=== PATIENT | female | born 1940 | race Caucasian/White ===

== ENCOUNTER 2019-02-17 13:33 | Inpatient (IN) | payer MEDICARE, OTHER ==
[~2019-02-17] VITALS: Ht 165.1 cm; Wt 117.2 kg
[~2019-02-17 13:33] MED LIST: ACET500 PO; ACETAMINOPHEN500 MG PO; ALBU90OI INH; AMLO5 PO; ASPI325; ASPI325 PO; ASPI81CH PO; ATOR40TA PO; ATOR80 PO; AZIT500 PO; B Complex #11 EACH PO; BREO ELLIPTA 11 EACH INH; BREO ELLIPTA 21 EACH INH; CARV25 PO; CARV6.25 PO; CEFP200 PO; CENTRUM SILVER1 EAC2 PO; CHOL10002 PO; COQ1050 MG PO; CRESTOR 40MG; CRESTOR PO; CYCL10 PO; D3-20002000 UNIT PO; DILT120 PO; EZET10 PO; FLONASE ALLERG9.9 ML; FLUSAL2505 INH; FLUT.05NI; FLUT44OIA; FURO20 PO; GABA100 PO; GABA300 PO; GLUCHON; GUAIFENESIN AC473 ML PO; HYDACE5325; HYDCHL25 PO; IBUP400 PO; INS70/30I; INS70/30I SC; INS70/30PN SC; LAVAP17G PO; LISHYD2012 PO; LOSA50 PO; LOSARTAN/HCTZ 100/25; LOSHYD100 PO; METF500; METPRE4DP PO; MONT10T PO; MULVITMIND PO; MULVITMINF; Micro-K10 MEQ PO; Novolog100 UNIT/1 SQ; OXYC5 PO; PIOG45 PO; POTCHL10ER PO; PRED20; PROAIR RESPICL90 MCG INH; PYRI100; SACC250C PO; SITA100T2; SITA100T2 PO; SITA50T2; SODCHL.65S; VITAMIN B COMPLEX; Vitamin D2000 UNIT PO; Vitamin D400 UNI1 PO; [UNRECOGNIZED DRUG - OTHER]; [UNRECOGNIZED DRUG - OTHER] SC
[2019-02-17] MEDS ORDERED: HYDR1TAB94 PO (14:03)
[2019-02-17] MEDS ORDERED: LOVA40 PO (14:04)
[2019-02-17] MEDS ORDERED: LIVALO2 MG PO (16:23)
[2019-02-17] MEDS ORDERED: FURO20 PO (16:36)
[2019-02-18 01:51] LABS: BASOPHILS ABSOLUTE AUTO 0.07 K/mm3 (0.00-0.23); BASOPHILS PERCENT AUTO 1 % (0-2); EOSINOPHILS ABSOLUTE AUTO 0.21 K/mm3 (0.00-0.68); EOSINOPHILS PERCENT AUTO 1 % (0-6); Hematocrit 36.2 % (33.0-51.0); Hemoglobin 11.9 g/dL (11.5-16.0); IMMATURE GRAN ABSOLUTE AUTO 0.15 K/mm3 (0.00-0.10); IMMATURE GRAN PERCENT AUTO 1 % (0-1); LYMPHOCYTES ABSOLUTE AUTO 3.37 K/mm3 (0.84-5.20); LYMPHOCYTES PERCENT AUTO 22 % (21-46); MONOCYTES ABSOLUTE AUTO 1.31 K/mm3 (0.16-1.47); MONOCYTES PERCENT AUTO 9 % (4-13); Mean Corpuscular HGB 29.7 pg (26.0-34.0); Mean Corpuscular HGB Conc 32.9 g/dL (31.5-36.5); Mean Corpuscular Volume 90 fL (80-100); Mean Platelet Volume 11.8 fL (9.1-12.4); NEUTROPHILS ABSOLUTE AUTO 10.37 K/mm3 (1.96-9.15); NEUTROPHILS PERCENT AUTO 67 % (41-73); Platelet Count 257 K/mm3 (150-400); RDW Coefficient Variation 12.3 % (11.7-14.2); RDW Standard Deviation 40.7 fL (35.1-46.3); Red Blood Cell Count 4.01 M/mm3 (3.80-5.20); White Blood Cell Count 15.48 K/mm3 (4.00-11.30)
[2019-02-18 01:56] LABS: Albumin, Blood 2.7 g/dL (3.4-5.0); Albumin/Globulin Ratio 0.8 (0.8-1.8); Bilirubin, Total 0.6 mg/dL (0.1-1.0); Bun/Creatinine Ratio 18.5 (12.0-20.0); Calcium, Blood 8.6 mg/dL (8.5-10.1); Creatinine, Blood 0.97 mg/dL (0.40-1.00); Globulin, Blood 3.3 g/dL (2.2-4.0); Potassium, Blood 3.9 mmol/L (3.5-5.5)
--- NOTE | 2019-02-18 05:09 | NUR ---
SHIFT SUMMARY ADMITTED FOR CP. AOX4. LS CLEAR, DENIES SOB. NO C/O NAUSEA. PAIN RATED 5/10 FOR HEADACHE. TYLENOL GIVEN @ 2034, NO RELIEF. 2 NORCO GIVEN @ 2229, PT SLEEPING FOR REASSESSMENT. TELE READS SINUS LEONEL 51. PT HAS ADINA BUT DOESNT WEAR CPAP. REFUSED TEDS. INDEPENDENT. DM2, AC AND HS. SBP 214/80 IN ED. PRN HYDRALAZINE GIVEN IN ED. SBP TO STAY AROUND [address] MYERS, NO PRN HYDRALAZINE UNLESS ABOVE 180/190. SBP DID GET DOWN TO 150/95, CALLED DR MYERS AND SHE SAID THAT WAS OKAY. TROPS HAVE BEEN ELEVATED. CHRONIC ELEVATED TROPS OVER THE LAST FEW YEARS. POSSIBLE DC TODAY.
--- NOTE | 2019-02-18 10:32 | NUR ---
echocardiogram completed
[2019-02-18] MEDS ORDERED: LOSA50 PO (12:33)
[2019-02-18] MEDS ORDERED: LOVA40 PO (12:34)
--- NOTE | 2019-02-18 17:56 | NUR ---
shift summary independent in room. dozing on and off. anxious about her cats but were able to get ahold of a friend that was able to help her out. has denied any chest pain, pressure, or discomfort. possible discharge tomorrow.
[2019-02-19 05:28] LABS: BASOPHILS ABSOLUTE AUTO 0.05 K/mm3 (0.00-0.23); BASOPHILS PERCENT AUTO 0 % (0-2); EOSINOPHILS ABSOLUTE AUTO 0.31 K/mm3 (0.00-0.68); EOSINOPHILS PERCENT AUTO 2 % (0-6); Hemoglobin 11.7 g/dL (11.5-16.0); IMMATURE GRAN ABSOLUTE AUTO 0.07 K/mm3 (0.00-0.10); IMMATURE GRAN PERCENT AUTO 1 % (0-1); LYMPHOCYTES ABSOLUTE AUTO 3.95 K/mm3 (0.84-5.20); LYMPHOCYTES PERCENT AUTO 30 % (21-46); MONOCYTES ABSOLUTE AUTO 1.55 K/mm3 (0.16-1.47); MONOCYTES PERCENT AUTO 12 % (4-13); Mean Corpuscular HGB 28.8 pg (26.0-34.0); Mean Corpuscular HGB Conc 32.5 g/dL (31.5-36.5); Mean Corpuscular Volume 89 fL (80-100); Mean Platelet Volume 12.5 fL (9.1-12.4); NEUTROPHILS ABSOLUTE AUTO 7.13 K/mm3 (1.96-9.15); NEUTROPHILS PERCENT AUTO 55 % (41-73); Platelet Count 246 K/mm3 (150-400); RDW Coefficient Variation 12.5 % (11.7-14.2); RDW Standard Deviation 40.3 fL (35.1-46.3); Red Blood Cell Count 4.06 M/mm3 (3.80-5.20); White Blood Cell Count 13.06 K/mm3 (4.00-11.30)
--- NOTE | 2019-02-19 05:30 | NUR ---
SHIFT SUMMARY DRESSING CHANGED ON PTS IV INSERTION SITE, IV FLUSHES WELL. PT HAD GOOD ENERGY AND WAS STEADY ON FEET WHEN WALKING AROUND HER ROOM. PT ON TELE, RATE AN RHYTHM IS SINUS LEONEL AT 53. BED IS IN LOWEST POSITION WITH WHEELS LOCKED. CALL LIGHT WITHIN REACH. PT CALLS APPROPRIATELY. REPORT GIVEN TO ONCOMING RN.
[2019-02-19] MEDS ORDERED: AMLO10 PO (14:45)
[2019-02-19] MEDS ORDERED: CLOP75 PO (14:50)
[2019-02-19] MEDS ORDERED: SPIR25 PO (14:51)
[2019-02-19] MEDS ORDERED: HYDR10 PO (14:52)
--- NOTE | 2019-02-19 16:54 | NUR ---
SHIFT SUMMARY PT AWAKE DURING SHIFT REPORT. VERY PLEASANT AND TALKATIVE. ADMITTED FOR CP AND SOB. HX OF CHF, HTN, AND SEVERE AORTIC STENOSIS. DR LUGO IN TO SEE PT EARLY. NO C/O CP OR SOB. SR ON TELE, PER MX TECH. PT ABLE TO AMBULATE IN INDEPENDENTLY, USING FWW. D/C ORDERS PLACED. PT INFORMED. IV D/C'D WNL. TELE MX REMOVED AND RETURNED TO PCU. PT THEN BECAME ANXIOUS AT NOT HAVING A RIDE BACK TO [facility] WHERE SHE LEFT HER TRUCK. PT EVENTUALLY ABLE TO REACH HER FRIEND TO COME AND GET HER. PT VERY RELIEVED AND GRATEFUL FOR CARE. [facility] GUN STOCK MAKER IN TO SEE PT PRIOR TO D/C TO EXPLAIN PLAN OF CARE AND FOLLOW UP APPOINTMENTS. PT VERBALIZED UNDERSTANDING. ASSISTED PT OUT TO CAR WITH WAITING FRIEND.
--- NOTE | 2019-02-19 18:16 | NUR ---
CALLED PT AT HOME, AFTER D/C TO REVIEW MEDICATIONS AND INSULIN ONCE AGAIN TO MAKE SURE PT UNDERSTOOD. ENCOURAGED PT TO CK CBG'S PRIOR TO INSULIN ADMIN. PT VERBALIZED UNDERSTANDING. ALSO ENCOURAGED PT TO CHECK BP PRIOR TO TAKING BP MEDS, WELL TO REVIEW BP MEDS AGAIN WITH THE DIESEL INSPECTOR WHEN SHE GOES TO FOLLOW UP APPOINTMENT. PT REPORTED THAT SHE WOULD BE MORE CAREFUL NOW.
== END 2019-02-19 15:30 | disposition home or self-care (01) | DRG 304 ==
LOC: ER 13:33 → MEDS 17:29 → ERHOLD 17:29 → MEDS 18:47
PROVIDERS: ADMIT Student in an Organized Health Care Education/Training Program
DX: I16.9 Hypertensive crisis, unspecified (principal); I50.43 Acute on chronic combined systolic (congestive) and diastolic (congestive) heart failure; Z68.41 Body mass index [BMI] 40.0-44.9, adult; I13.0 Hypertensive heart and chronic kidney disease with heart failure and stage 1 through stage 4 chronic kidney disease, or unspecified chronic kidney disease; N18.3 Chronic kidney disease, stage 3 (moderate); E11.22 Type 2 diabetes mellitus with diabetic chronic kidney disease; E78.5 Hyperlipidemia, unspecified; E66.01 Morbid (severe) obesity due to excess calories; G47.33 Obstructive sleep apnea (adult) (pediatric); I35.0 Nonrheumatic aortic (valve) stenosis; R00.1 Bradycardia, unspecified; Z66 Do not resuscitate; Z91.14 Patient's other noncompliance with medication regimen; Z79.82 Long term (current) use of aspirin; Z79.4 Long term (current) use of insulin; Z79.899 Other long term (current) drug therapy
CPT/HCPCS: 36415; 71046; 80053; 82947; 83880; 84484; 85025; 85379; 93005; 93010; 93306; 94640; 94760; 96374; 98960; 99285-25; A9270; A9270-GY; J0360; J1650; J1815

== ENCOUNTER 2021-05-01 07:51 | Emergency (ER) | payer MEDICARE, OTHER ==
[~2021-05-01] VITALS: Ht 162.6 cm; Wt 108.9 kg
[~2021-05-01 07:51] MED LIST changes: +AMLO10 PO; +Aspir 8181 MG PO; +BREO ELLIPTA 21 EAC1; +CLOP75 PO; +CYAN500 PO; +ELIQUIS5 MG PO; +Flonase 0.05% N16 GM; +GLUCOSAMINE-CH1 EAC7 PO; +GLUCOSAMINE/CHONDR PO; +HYDR10 PO; +HYDR1TAB94 PO; +LIVALO2 MG PO; +LOVA40 PO; +MUCINEX DM PO; +NOVOLOG MI100 UNIT/2 SC; +PYRI100 PO; +Prednisone20 MG PO; +SPIR25 PO; +UBID10 PO; -[UNRECOGNIZED DRUG - OTHER] SC
[2021-05-01 08:36] LABS: BASOPHILS ABSOLUTE AUTO 0.08 K/mm3 (0.00-0.23); BASOPHILS PERCENT AUTO 1 % (0-2); EOSINOPHILS ABSOLUTE AUTO 0.26 K/mm3 (0.00-0.68); EOSINOPHILS PERCENT AUTO 3 % (0-6); Hematocrit 41.1 % (33.0-51.0); Hemoglobin 13.4 g/dL (11.5-16.0); IMMATURE GRAN ABSOLUTE AUTO 0.05 K/mm3 (0.00-0.10); IMMATURE GRAN PERCENT AUTO 1 % (0-1); LYMPHOCYTES ABSOLUTE AUTO 2.97 K/mm3 (0.84-5.20); LYMPHOCYTES PERCENT AUTO 29 % (21-46); MONOCYTES ABSOLUTE AUTO 0.96 K/mm3 (0.16-1.47); MONOCYTES PERCENT AUTO 10 % (4-13); Mean Corpuscular HGB 29.2 pg (26.0-34.0); Mean Corpuscular HGB Conc 32.6 g/dL (31.5-36.5); Mean Corpuscular Volume 90 fL (80-100); Mean Platelet Volume 10.3 fL (9.1-12.4); NEUTROPHILS ABSOLUTE AUTO 5.79 K/mm3 (1.96-9.15); NEUTROPHILS PERCENT AUTO 57 % (41-73); Platelet Count 318 K/mm3 (150-400); RDW Coefficient Variation 13.1 % (11.7-14.2); RDW Standard Deviation 42.3 fL (35.1-46.3); Red Blood Cell Count 4.59 M/mm3 (3.80-5.20); White Blood Cell Count 10.11 K/mm3 (4.00-11.30)
[2021-05-01 08:51] LABS: Calcium, Blood 8.8 mg/dL (8.5-10.1); Potassium, Blood 3.5 mmol/L (3.5-5.5)
== END 2021-05-01 10:53 | disposition home or self-care (01) ==
LOC: ER 07:51
PROVIDERS: Emergency Medicine
DX: M79.605 Pain in left leg (principal); M79.604 Pain in right leg; E11.9 Type 2 diabetes mellitus without complications; I10 Essential (primary) hypertension; E78.5 Hyperlipidemia, unspecified; J44.9 Chronic obstructive pulmonary disease, unspecified; Z79.899 Other long term (current) drug therapy; W01.0XXA Fall on same level from slipping, tripping and stumbling without subsequent striking against object, initial encounter
CPT/HCPCS: 36415; 80048; 85025; 99283

== ENCOUNTER 2021-11-19 17:28 | Inpatient (IN) | payer MEDICARE, OTHER | END 2021-12-28 15:10 | DRG 56 | LOC: ER 17:28 → SURS 17:29 → MEDS 11-21 20:10 | PROVIDERS: ADMIT Internal Medicine | PROC: 8E0ZXY6 Isolation (ICD-10-PCS; principal; 2021-11-30) | DX: G30.9 Alzheimer's disease, unspecified (principal); G92.8 Other toxic encephalopathy; U07.1 COVID-19; M62.82 Rhabdomyolysis; I50.32 Chronic diastolic (congestive) heart failure; I13.0 Hypertensive heart and chronic kidney disease with heart failure and stage 1 through stage 4 chronic kidney disease, or unspecified chronic kidney disease; R65.10 Systemic inflammatory response syndrome (SIRS) of non-infectious origin without acute organ dysfunction; F02.80 Dementia in other diseases classified elsewhere, unspecified severity, without behavioral disturbance, psychotic disturbance, mood disturbance, and anxiety; E86.0 Dehydration; E87.6 Hypokalemia; Z66 Do not resuscitate; Z51.5 Encounter for palliative care; E11.65 Type 2 diabetes mellitus with hyperglycemia; B37.2 Candidiasis of skin and nail; E66.9 Obesity, unspecified; G47.33 Obstructive sleep apnea (adult) (pediatric); I27.20 Pulmonary hypertension, unspecified; N18.30 Chronic kidney disease, stage 3 unspecified; J44.9 Chronic obstructive pulmonary disease, unspecified; W18.30XA Fall on same level, unspecified, initial encounter; E78.00 Pure hypercholesterolemia, unspecified; I25.10 Atherosclerotic heart disease of native coronary artery without angina pectoris; I35.0 Nonrheumatic aortic (valve) stenosis; Z96.653 Presence of artificial knee joint, bilateral; S40.012A Contusion of left shoulder, initial encounter; S40.022A Contusion of left upper arm, initial encounter; E11.22 Type 2 diabetes mellitus with diabetic chronic kidney disease; I48.0 Paroxysmal atrial fibrillation; F32.A Depression, unspecified; Z90.49 Acquired absence of other specified parts of digestive tract; Z90.710 Acquired absence of both cervix and uterus; Z91.19 Patient's noncompliance with other medical treatment and regimen; Z90.722 Acquired absence of ovaries, bilateral; Z98.890 Other specified postprocedural states; Z95.4 Presence of other heart-valve replacement; Z88.8 Allergy status to other drugs, medicaments and biological substances; Z91.041 Radiographic dye allergy status; Z85.42 Personal history of malignant neoplasm of other parts of uterus; Z88.5 Allergy status to narcotic agent; Z79.4 Long term (current) use of insulin; Z79.01 Long term (current) use of anticoagulants; Z79.52 Long term (current) use of systemic steroids; Z79.899 Other long term (current) drug therapy; Z79.51 Long term (current) use of inhaled steroids; Z79.02 Long term (current) use of antithrombotics/antiplatelets; Z68.36 Body mass index [BMI] 36.0-36.9, adult ==

== ENCOUNTER → 2022-03-06 | Outpatient (CLI) | payer MEDICARE, OTHER ==
[~2022-03-06] MED LIST changes: +AMIODARONE HCL100 M3 PO; -BREO ELLIPTA 21 EAC1; +BREO ELLIPTA 21 EAC1 INH; +CARVEDILOL3.125 MG PO; +FURO40 PO; +Hair, Skin & N1 EACH PO; +LOVASTATIN40 MG PO; -MULVITMIND PO
[2022-03-07 15:17] LABS: Appearance, Urine Clear (Clear); Bilirubin, Urine Neg (Neg); Blood, Urine Neg (Neg); Color, Urine Yellow (P-Yellow); Glucose Qualitative, Urine Neg (Neg); Ketones, Urine Neg (Neg); Leukocyte Esterase, Urine 2+ (Neg); Nitrite, Urine Neg (Neg); Protein, Urine Neg (Neg); Urobilinogen, Urine NORM (Normal); pH, Urine 6.5 (5.0-8.0)
[2022-03-07 16:44] LABS: Bacteria Few /hpf; Red Blood Cells, Urine 0-2 /hpf (0-2); Squamous Epithelial Cells Few /hpf (Few); White Blood Cells, Urine 0-2 /hpf (0-5)
== END ==
LOC: LAB SHORT 16:00 → LAB 16:00 → LAB SHORT 03-07 14:01
PROVIDERS: Family Medicine
DX: N39.0 Urinary tract infection, site not specified (principal)
CPT/HCPCS: 81001; 87086

== ENCOUNTER → 2022-04-07 | Outpatient (CLI) | payer MEDICARE, OTHER | END | disposition home or self-care (01) | DX: N39.0 Urinary tract infection, site not specified (principal) ==

== ENCOUNTER 2022-04-12 12:01 | Emergency (ER) | payer OTHER, MEDICARE ==
[~2022-04-12] VITALS: Ht 160 cm; Wt 93.9 kg
[2022-04-12] MEDS ORDERED: CYCL10 (15:26)
[2022-04-12] MEDS ORDERED: PANTOPRAZOLE SO40 M2 PO (15:27)
[2022-04-12] MEDS ORDERED: LOSA25 PO (15:27)
[2022-04-12] MEDS ORDERED: BRIMONIDINE TART5 M2 OP (15:27)
[2022-04-12] MEDS ORDERED: METFORMIN HCL500 M2 PO (15:28)
[2022-04-12] MEDS ORDERED: Melatonin5 M1 PO (15:28)
[2022-04-12] MEDS ORDERED: MIRTAZAPINE30 MG PO (15:28)
[2022-04-12] MEDS ORDERED: QUETIAPINE FUMA25 MG PO (15:29)
== END 2022-04-12 18:03 | disposition home or self-care (01) ==
LOC: ER 12:01
DX: Z04.3 Encounter for examination and observation following other accident (principal); E11.9 Type 2 diabetes mellitus without complications; I10 Essential (primary) hypertension; E78.5 Hyperlipidemia, unspecified; J44.9 Chronic obstructive pulmonary disease, unspecified; I48.91 Unspecified atrial fibrillation; I25.10 Atherosclerotic heart disease of native coronary artery without angina pectoris; Z88.8 Allergy status to other drugs, medicaments and biological substances; Z91.041 Radiographic dye allergy status; Z79.899 Other long term (current) drug therapy; Z79.4 Long term (current) use of insulin; W18.30XA Fall on same level, unspecified, initial encounter
CPT/HCPCS: 70450

== ENCOUNTER 2022-05-06 14:45 | Emergency (ER) | payer MEDICARE, OTHER ==
[~2022-05-06] VITALS: Ht 165.1 cm; Wt 108.9 kg
[~2022-05-06 14:45] MED LIST changes: +ALBU2.5V5; +BISA10S PR; +BRIMONIDINE TART5 M2 OP; +CELE200 PO; +COENZYME Q-1030 MG PO; +CYCL10; +DULCOLAX400 MG/5 M PO; +GLIP5; +LOPE2C PO; +LOSA25 PO; +METFORMIN HCL500 M2 PO; +METO25ER PO; +MIRTAZAPINE30 MG PO; +MYLANTA GAS MIN42 MG PO; +Melatonin5 M1 PO; +PANTOPRAZOLE SO40 M2 PO; +QUETIAPINE FUMA25 MG PO; +SERT50 PO; +[UNRECOGNIZED DRUG - CODE] PO
[2022-05-06 15:29] LABS: BASOPHILS ABSOLUTE AUTO 0.04 K/mm3 (0.00-0.23); BASOPHILS PERCENT AUTO 1 % (0-2); EOSINOPHILS ABSOLUTE AUTO 0.08 K/mm3 (0.00-0.68); EOSINOPHILS PERCENT AUTO 1 % (0-6); Hematocrit 36.8 % (33.0-51.0); Hemoglobin 12.1 g/dL (11.5-16.0); IMMATURE GRAN ABSOLUTE AUTO 0.05 K/mm3 (0.00-0.10); IMMATURE GRAN PERCENT AUTO 1 % (0-1); LYMPHOCYTES ABSOLUTE AUTO 1.64 K/mm3 (0.84-5.20); LYMPHOCYTES PERCENT AUTO 26 % (21-46); MONOCYTES ABSOLUTE AUTO 0.86 K/mm3 (0.16-1.47); MONOCYTES PERCENT AUTO 14 % (4-13); Mean Corpuscular HGB 28.7 pg (26.0-34.0); Mean Corpuscular HGB Conc 32.9 g/dL (31.5-36.5); Mean Corpuscular Volume 87 fL (80-100); Mean Platelet Volume 10.8 fL (9.1-12.4); NEUTROPHILS ABSOLUTE AUTO 3.68 K/mm3 (1.96-9.15); NEUTROPHILS PERCENT AUTO 58 % (41-73); Platelet Count 271 K/mm3 (150-400); RDW Coefficient Variation 13.6 % (11.7-14.2); RDW Standard Deviation 43.6 fL (35.1-46.3); Red Blood Cell Count 4.22 M/mm3 (3.80-5.20); White Blood Cell Count 6.35 K/mm3 (4.00-11.30)
[2022-05-06 15:42] LABS: Ethanol (Alcohol), Blood, Med <3 mg/dL; Magnesium, Blood 1.6 mg/dL (1.6-2.4)
[2022-05-06 15:46] LABS: Alanine Aminotransfer (ALT/SGP 28 U/L (12-78); Albumin, Blood 3.1 g/dL (3.4-5.0); Albumin/Globulin Ratio 0.8 (0.8-1.8); Alk Phos 104 U/L (50-136); Anion Gap 10 mmol/L (6-16); Aspartate Aminotrans (AST/SGOT 33 U/L (12-37); Bilirubin, Total 0.3 mg/dL (0.1-1.0); Blood Urea Nitrogen 21 mg/dL (8-24); Bun/Creatinine Ratio 14.8 (12.0-20.0); CO2, Blood 25 mmol/L (21-32); Calcium, Blood 8.6 mg/dL (8.5-10.1); Chloride, Blood 106 mmol/L (98-108); Creatinine, Blood 1.42 mg/dL (0.40-1.00); Globulin, Blood 3.9 g/dL (2.2-4.0); Glomerular Filtration Rate 37 (60-); Glucose, Blood 122 mg/dL (70-99); Potassium, Blood 3.3 mmol/L (3.5-5.5); Sodium, Blood 141 mmol/L (136-145)
[2022-05-06 16:28] LABS: Influenza B, PCR NEGATIVE (NEGATIVE); Resp Syncytial Virus, PCR NEGATIVE (NEGATIVE); SARS-Cov-2 (COVID-19) PCR, MMC NEGATIVE (NEGATIVE)
[2022-05-06 16:30] LABS: Influenza A, PCR POSITIVE (NEGATIVE)
[2022-05-06] MEDS ORDERED: IMODIUM A-D2 M1 PO (17:39)
[2022-05-06] MEDS ORDERED: Tamiflu75 MG PO (17:39)
== END 2022-05-06 18:20 | disposition home or self-care (01) ==
LOC: ER 14:45
PROVIDERS: Emergency Medicine
DX: J10.1 Influenza due to other identified influenza virus with other respiratory manifestations (principal); R53.1 Weakness; E11.9 Type 2 diabetes mellitus without complications; I10 Essential (primary) hypertension; I25.10 Atherosclerotic heart disease of native coronary artery without angina pectoris; Z20.822 Contact with and (suspected) exposure to COVID-19
CPT/HCPCS: 0241U; 36415; 71045; 80053; 83735; 83880; 84443; 84484; 85025; 93005; 93010; A9270; G0480; J7030

== ENCOUNTER → 2022-06-27 | Outpatient (CLI) | payer MEDICARE, OTHER ==
[~2022-06-27] MED LIST changes: +IMODIUM A-D2 M1 PO; +Tamiflu75 MG PO
[2022-06-27 19:24] LABS: Appearance, Urine Clear (Clear); Bilirubin, Urine Neg (Neg); Blood, Urine Neg (Neg); Color, Urine Yellow (P-Yellow); Glucose Qualitative, Urine Neg (Neg); Ketones, Urine Neg (Neg); Leukocyte Esterase, Urine Neg (Neg); Nitrite, Urine Neg (Neg); Protein, Urine Neg (Neg); Urobilinogen, Urine NORM (Normal)
== END | disposition home or self-care (01) ==
LOC: LAB 11:00 → LAB SHORT 11:00
PROVIDERS: Physician Assistant
DX: N39.0 Urinary tract infection, site not specified (principal)
CPT/HCPCS: 81003; 87086

== ENCOUNTER → 2022-10-22 | Outpatient (CLI) | payer MEDICARE, OTHER ==
[2022-10-23 09:37] LABS: C DIFFICILE DNA Formed (Negative)
== END | disposition home or self-care (01) ==
LOC: LAB 12:00 → LAB SHORT 12:00
PROVIDERS: Physician Assistant
DX: R19.7 Diarrhea, unspecified (principal)
CPT/HCPCS: 87015; 87045; 87046; 87205; 87899

== ENCOUNTER → 2022-10-23 | Outpatient (CLI) | payer MEDICARE, OTHER ==
[2022-10-23 13:36] LABS: Creatinine, Urine Random 27.3 mg/dL (27.00-270.00); Microalb/Creat Ratio UR, Rand 19.634 mg/g (0.000-30.000); Microalbumin, Random Urine 5.36 mg/L (0.000-20.000)
== END | disposition home or self-care (01) ==
LOC: LAB 10:20 → LAB SHORT 10:20
PROVIDERS: Physician Assistant
DX: E11.9 Type 2 diabetes mellitus without complications (principal)
CPT/HCPCS: 82043; 82570

== ENCOUNTER → 2022-11-22 | Outpatient (CLI) | payer MEDICARE, OTHER ==
[2022-11-22 15:32] LABS: Appearance, Urine Clear (Clear); Bilirubin, Urine Neg (Neg); Blood, Urine Neg (Neg); Color, Urine Yellow (P-Yellow); Glucose Qualitative, Urine Neg (Neg); Ketones, Urine Neg (Neg); Leukocyte Esterase, Urine Neg (Neg); Nitrite, Urine Neg (Neg); Protein, Urine Neg (Neg); Specific Gravity, Urine 1.015 (1.003-1.022); Urobilinogen, Urine NORM (Normal)
== END | disposition home or self-care (01) ==
LOC: LAB 14:11 → LAB SHORT 14:11
PROVIDERS: Physician Assistant
DX: N39.0 Urinary tract infection, site not specified (principal)
CPT/HCPCS: 81003; 87086

== ENCOUNTER 2023-01-05 10:01 | Emergency (ER) | payer MEDICARE, OTHER ==
[~2023-01-05] VITALS: Ht 165.1 cm; Wt 86.2 kg
[2023-01-05] MEDS ORDERED: AMIODARONE HCL100 M3 PO (10:18)
[2023-01-05] MEDS ORDERED: FURO40 PO (10:19)
[2023-01-05] MEDS ORDERED: Alphagan P5 ML BOTHEYES (10:19)
[2023-01-05] MEDS ORDERED: CELE200 PO (10:19)
[2023-01-05] MEDS ORDERED: AMLO10 PO (10:19)
[2023-01-05] MEDS ORDERED: GABA300 PO (10:20)
[2023-01-05] MEDS ORDERED: GLIP5 PO (10:20)
[2023-01-05] MEDS ORDERED: Norco 5-325 Ta1 EACH PO (10:20)
[2023-01-05] MEDS ORDERED: HYDRA25 PO (10:20)
[2023-01-05] MEDS ORDERED: LOSA50 PO (10:21)
[2023-01-05] MEDS ORDERED: METO25ER PO (10:21)
[2023-01-05] MEDS ORDERED: LOVA40 PO (10:21)
[2023-01-05] MEDS ORDERED: MIRT15 PO (10:21)
[2023-01-05] MEDS ORDERED: MONT10T PO (10:21)
[2023-01-05] MEDS ORDERED: SERT50 PO (10:22)
[2023-01-05] MEDS ORDERED: ALBU90OI INH ×2 (10:22→12:12)
[2023-01-05] MEDS ORDERED: ACET325 PO (10:22)
[2023-01-05] MEDS ORDERED: PANT40 PO (10:22)
[2023-01-05 10:26] LABS: BASOPHILS ABSOLUTE AUTO 0.11 K/mm3 (0.00-0.23); BASOPHILS PERCENT AUTO 1 % (0-2); EOSINOPHILS ABSOLUTE AUTO 0.48 K/mm3 (0.00-0.68); EOSINOPHILS PERCENT AUTO 4 % (0-6); Hematocrit 39.7 % (33.0-51.0); Hemoglobin 12.8 g/dL (11.5-16.0); IMMATURE GRAN ABSOLUTE AUTO 0.06 K/mm3 (0.00-0.10); IMMATURE GRAN PERCENT AUTO 1 % (0-1); LYMPHOCYTES ABSOLUTE AUTO 3.68 K/mm3 (0.84-5.20); LYMPHOCYTES PERCENT AUTO 30 % (21-46); MONOCYTES ABSOLUTE AUTO 1.02 K/mm3 (0.16-1.47); MONOCYTES PERCENT AUTO 8 % (4-13); Mean Corpuscular HGB 28.6 pg (26.0-34.0); Mean Corpuscular HGB Conc 32.2 g/dL (31.5-36.5); Mean Corpuscular Volume 89 fL (80-100); Mean Platelet Volume 10.6 fL (9.1-12.4); NEUTROPHILS ABSOLUTE AUTO 6.76 K/mm3 (1.96-9.15); NEUTROPHILS PERCENT AUTO 56 % (41-73); Platelet Count 295 K/mm3 (150-400); RDW Coefficient Variation 12.7 % (11.7-14.2); RDW Standard Deviation 41.2 fL (35.1-46.3); Red Blood Cell Count 4.48 M/mm3 (3.80-5.20); White Blood Cell Count 12.11 K/mm3 (4.00-11.30)
[2023-01-05 10:42] LABS: Albumin, Blood 3.7 g/dL (3.4-5.0); Bilirubin, Total 0.4 mg/dL (0.1-1.0); Bun/Creatinine Ratio 15.4 (12.0-20.0); Calcium, Blood 8.9 mg/dL (8.5-10.1); Creatinine, Blood 0.91 mg/dL (0.40-1.00); Globulin, Blood 3.8 g/dL (2.2-4.0); Potassium, Blood 3.7 mmol/L (3.5-5.5); Total Protein, Blood 7.5 g/dL (6.4-8.2)
[2023-01-05] MEDS ORDERED: Prednisone20 MG PO (12:12)
[2023-01-05 14:22] VITALS: BP 170/76
== END 2023-01-05 14:25 | disposition home or self-care (01) ==
LOC: ER 10:01
PROVIDERS: Emergency Medicine
DX: J45.909 Unspecified asthma, uncomplicated (principal); E11.9 Type 2 diabetes mellitus without complications; I10 Essential (primary) hypertension; E78.5 Hyperlipidemia, unspecified; I48.91 Unspecified atrial fibrillation; Z79.01 Long term (current) use of anticoagulants; Z79.899 Other long term (current) drug therapy; Z88.8 Allergy status to other drugs, medicaments and biological substances
CPT/HCPCS: 71046; 80053; 83880; 84484; 85025; 93005; 93010; 94640; 94664; 99285-25; J7512

== ENCOUNTER 2023-01-20 08:30 | Inpatient (IN) | payer MEDICARE, OTHER ==
[~2023-01-20] VITALS: Ht 165.1 cm; Wt 115.4 kg
[~2023-01-20 08:30] MED LIST changes: +ACET325 PO; +Alphagan P5 ML BOTHEYES; +GLIP5 PO; +HYDRA25 PO; +MIRT15 PO; +Norco 5-325 Ta1 EACH PO; +PANT40 PO
[2023-01-20 09:04] LABS: BASOPHILS ABSOLUTE AUTO 0.08 K/mm3 (0.00-0.23); BASOPHILS PERCENT AUTO 0 % (0-2); EOSINOPHILS PERCENT AUTO 1 % (0-6); Hematocrit 37.8 % (33.0-51.0); IMMATURE GRAN ABSOLUTE AUTO 0.16 K/mm3 (0.00-0.10); IMMATURE GRAN PERCENT AUTO 1 % (0-1); LYMPHOCYTES ABSOLUTE AUTO 1.99 K/mm3 (0.84-5.20); LYMPHOCYTES PERCENT AUTO 10 % (21-46); MONOCYTES ABSOLUTE AUTO 1.56 K/mm3 (0.16-1.47); MONOCYTES PERCENT AUTO 8 % (4-13); Mean Corpuscular HGB 28.8 pg (26.0-34.0); Mean Corpuscular HGB Conc 31.7 g/dL (31.5-36.5); Mean Corpuscular Volume 91 fL (80-100); Mean Platelet Volume 10.4 fL (9.1-12.4); NEUTROPHILS ABSOLUTE AUTO 15.79 K/mm3 (1.96-9.15); NEUTROPHILS PERCENT AUTO 80 % (41-73); Platelet Count 281 K/mm3 (150-400); RDW Coefficient Variation 12.8 % (11.7-14.2); RDW Standard Deviation 42.4 fL (35.1-46.3); Red Blood Cell Count 4.16 M/mm3 (3.80-5.20); White Blood Cell Count 19.68 K/mm3 (4.00-11.30)
[2023-01-20 09:30] LABS: Albumin, Blood 3.4 g/dL (3.4-5.0); Albumin/Globulin Ratio 0.8 (0.8-1.8); Bilirubin, Total 0.6 mg/dL (0.1-1.0); Bun/Creatinine Ratio 13.4 (12.0-20.0); Calcium, Blood 9.2 mg/dL (8.5-10.1); Creatinine, Blood 0.9 mg/dL (0.40-1.00); Globulin, Blood 4.2 g/dL (2.2-4.0); Potassium, Blood 4.1 mmol/L (3.5-5.5); Total Protein, Blood 7.6 g/dL (6.4-8.2)
[2023-01-20 11:26] LABS: Base Excess Venous 2.8 mmol/L; Bicarbonate Venous 26.1 mmol/L (24.0-30.0); PCO2 Venous 54.3 mmHg (38-42); pH Blood Venous 7.33 (7.34-7.37)
--- NOTE | 2023-01-20 12:10 | NUR ---
ASSUMPTION OF CARE PT ARRIVED TO UNIT VIA ED ANJANA. TRANSFERRED TO BED W/ SLIDER SHEET. PT IS AOX4, DROWSY, EASILY AROUSABLE TO VERBAL STIMULI. PT REPORTS OFTEN FORGETTING THINGS AT HOME, UNABLE TO PROVIDE MEDICATION HISTORY. LIVES AT [place], WILL CONTACT REGARDING MEDICATION HISTORY. VSS. TELEMETRY SHOWING SINUS LEONEL 50'S-60'S. CURRENTLY ON 3L VIA NC, SATS >95%. BIPAP TRANSFERRED W/ PT. IS AMBULATORY AT BASELINE, USES FWW. BEDBATH PERFORMED. PT ORIENTED TO UNIT, PROVIDED EDUCATION REGARDING FALL PREVENTION. BED ALARM IN PLACE. CALL LIGHT IN REACH.
[2023-01-20 12:54] VITALS: BP 156/80
[2023-01-20] MEDS ORDERED: CELE200 PO (15:59)
[2023-01-20] MEDS ORDERED: GABA300 PO ×2 (16:08→16:09)
[2023-01-20] MEDS ORDERED: HYDRA25 PO (16:11)
[2023-01-20] MEDS ORDERED: COENZYME Q-1030 MG PO (16:15)
[2023-01-20] MEDS ORDERED: FLUT.05NI (16:16)
[2023-01-20] MEDS ORDERED: MULVITA PO (16:17)
[2023-01-20] MEDS ORDERED: B-12500 MC2 PO (16:17)
[2023-01-20] MEDS ORDERED: Vitamin D1000 UNI1 PO (16:18)
[2023-01-20] MEDS ORDERED: PYRI100 PO (16:18)
[2023-01-20] MEDS ORDERED: ALUM-MAG HYDRO360 M1 PO (16:20)
[2023-01-20] MEDS ORDERED: BISA10S PR (16:21)
[2023-01-20] MEDS ORDERED: DIPATR PO (16:21)
[2023-01-20] MEDS ORDERED: LOPE2C PO (16:22)
[2023-01-20] MEDS ORDERED: DULCOLAX400 MG/5 M PO (16:23)
[2023-01-20] MEDS ORDERED: NYSTOP15 GM TOP (16:25)
[2023-01-20] MEDS ORDERED: BREO ELLIPTA 21 EAC1 INH (16:40)
[2023-01-20 16:48] VITALS: BP 158/65
--- NOTE | 2023-01-20 18:12 | NUR ---
SHIFT SUMMARY PT MORE LETHARGIC THIS AFTERNOON, BIPAP IN PLACE, EASILY AROUSABLE TO VERBAL STIMULI. FORGETFUL AT TIMES, BED ALARM ON. TELEMETRY SHOWING SINUS LEONEL, 40'S-50'S. VSS. SATS >95% ON BIPAP. ON 3L VIA NC OFF OF BIPAP. 1P ASSIST OOB W/ FWW. PUREWICK IN PLACE PT IS MORE LETHARGIC THIS EVENING. VOIDING SCANT AMOUNT. BLADDER SCAN IN PROGRESS PRIOR TO ADMINISTERING EVENING DOSE OF LASIX PER EMAR. SHOWING 672ML. NOTIFIED, RCVD ORDER TO STRAIGHT CATH. NO BM THIS SHIFT. REPOSITION FREQUENTLY TOLERATED. SITTING HOB GREATER THAN 30 DEGREES. CALL LIGHT IN REACH. WILL REPORT TO ONCOMING RN.
[2023-01-20 18:52] VITALS: BP 141/65
[2023-01-20 19:37] LABS: Base Excess Venous 4.5 mmol/L; Bicarbonate Venous 27.9 mmol/L (24.0-30.0); PCO2 Venous 42.8 mmHg (38-42); pH Blood Venous 7.44 (7.34-7.37)
[2023-01-20 20:00] VITALS: BP 161/71
[2023-01-21] VITALS (7 sets, daily range): BP systolic 117–172; BP diastolic 61–92
[2023-01-21 05:21] LABS: BASOPHILS ABSOLUTE AUTO 0.07 K/mm3 (0.00-0.23); BASOPHILS PERCENT AUTO 1 % (0-2); EOSINOPHILS ABSOLUTE AUTO 0.33 K/mm3 (0.00-0.68); EOSINOPHILS PERCENT AUTO 2 % (0-6); Hematocrit 33.5 % (33.0-51.0); Hemoglobin 11.6 g/dL (11.5-16.0); IMMATURE GRAN ABSOLUTE AUTO 0.09 K/mm3 (0.00-0.10); IMMATURE GRAN PERCENT AUTO 1 % (0-1); LYMPHOCYTES ABSOLUTE AUTO 2.77 K/mm3 (0.84-5.20); LYMPHOCYTES PERCENT AUTO 20 % (21-46); MONOCYTES ABSOLUTE AUTO 1.24 K/mm3 (0.16-1.47); MONOCYTES PERCENT AUTO 9 % (4-13); Mean Corpuscular HGB 28.9 pg (26.0-34.0); Mean Corpuscular HGB Conc 34.6 g/dL (31.5-36.5); NEUTROPHILS ABSOLUTE AUTO 9.65 K/mm3 (1.96-9.15); NEUTROPHILS PERCENT AUTO 68 % (41-73); RDW Coefficient Variation 12.7 % (11.7-14.2); RDW Standard Deviation 38.5 fL (35.1-46.3); Red Blood Cell Count 4.02 M/mm3 (3.80-5.20); White Blood Cell Count 14.15 K/mm3 (4.00-11.30)
[2023-01-21 05:33] LABS: Albumin, Blood 2.9 g/dL (3.4-5.0); Albumin/Globulin Ratio 0.8 (0.8-1.8); Bilirubin, Total 0.5 mg/dL (0.1-1.0); Bun/Creatinine Ratio 11.7 (12.0-20.0); Calcium, Blood 8.6 mg/dL (8.5-10.1); Creatinine, Blood 1.03 mg/dL (0.40-1.00); Globulin, Blood 3.8 g/dL (2.2-4.0); Potassium, Blood 3.5 mmol/L (3.5-5.5); Total Protein, Blood 6.7 g/dL (6.4-8.2)
[2023-01-21 05:39] LABS: Mean Corpuscular Volume 83 fL (80-100); Mean Platelet Volume 10.9 fL (9.1-12.4)
--- NOTE | 2023-01-21 06:10 | NUR ---
SHIFT SUMMARY PT MUCH MORE ALERT, INTERACTING AND RESPONDING TO QUESTIONS APPROPRIATELY. PT ORIENTED X4. MILD FORGETFULNESS NOTED BUT PT IS NOT CONFUSED. VSS; HR REMAINS SR/SB 50 - 60'S; OCCASSIONALLY TOUCHING DOWN TO 45-48. PT ON BIPAP; 10/5 W/35% FIO2 AT BEGINNING OF SHIFT, THEN SWITCHED TO 3 L NC FOR A BREAK. PT SPO2 MAINTAINED >94% AND PT WOB WNL. PT TOLERATING BEING ON NC WELL. PT RECENTLY UP TO BSC, WOB INCREASED SOME AND SPO2 84 - 87; PT PLACED BACK ON BIPAP TO HELP WITH RECOVERY. PT VOIDING WELL TO BSC W/SBA, NURSE ASSIST. CALL LIGHT IN REACH. WILL UPDATE ONCOMING RN
[2023-01-21 06:39] LABS: Platelet Count 222 K/mm3 (150-400)
--- NOTE | 2023-01-21 13:23 | NUR ---
ASSUMPTION OF CARE ASSUMED CARE AT APPROX 0700. PT AOX2, ALERTNESS WAXES AND WANES. INCREASED CONFUSION AND ANXIETY ASSESSED THIS MORNING, PT REORIENTED TO THE UNIT AND SITUATION. ABLE TO COMMUNICATE NEEDS PRN. VSS. REQUIRES BIPAP WHILE SLEEPING OR LETHARGIC D/T INCREASED WORK OF BREATHING, SATS >95%. BIPAP CAN CAUSE INCREASED ANXIETY UPON WAKING. 2L VIA NC WHILE AWAKE AND ALERT. TELEMETRY SHOWING SR 80'S INITIALLY. AROUND 0800, PT CONVERTED TO AFIB 90'S, ASYMPTOMATIC. MD NOTIFIED. SUSTAINING AT THIS TIME. VOIDING, UP TO THE BSC W/ 1P ASSIST FWW. SLEEPING T/O THE MORNING AND EARLY AFTERNOON, BED ALARM ON. CALL LIGHT IN REACH.
--- NOTE | 2023-01-21 17:03 | NUR ---
SHIFT SUMMARY NO ACUTE CHANGES THIS SHIFT. PT BECAME MUCH MORE ALERT T/O THE SHIFT. PRIOR DIAGNOSIS OF DEMENTIA, REQUIRES FREQUENT REORIENTATION REGARDING USE OF CALL LIGHT AND FALL PREVENTION, BED ALARM AND CHAIR ALARM IN PLACE. PLEASANT, COOPERATIVE W/ CARE. VSS. CURRENTLY ON 2L VIA NC, SATS >95%. USES BIPAP WHILE SLEEPING. DECREASED WORK OF BREATHING AT REST ASSESSED. MODERATE INCREASE W/ ACTIVITY. TELEMETRY SHOWING AFIB 80'S-90'S. BP STABLE. PT UP W/ SBA FWW TO BSC AND CHAIR. VOIDING. NO BM THIS SHIFT. CALL LIGHT IN REACH. WILL REPORT TO ONCOMING RN.
[2023-01-22] VITALS (7 sets, daily range): BP systolic 119–155; BP diastolic 78–111
[2023-01-22 04:28] LABS: BASOPHILS ABSOLUTE AUTO 0.07 K/mm3 (0.00-0.23); BASOPHILS PERCENT AUTO 1 % (0-2); EOSINOPHILS ABSOLUTE AUTO 0.32 K/mm3 (0.00-0.68); EOSINOPHILS PERCENT AUTO 3 % (0-6); Hematocrit 37.8 % (33.0-51.0); Hemoglobin 12.2 g/dL (11.5-16.0); IMMATURE GRAN ABSOLUTE AUTO 0.08 K/mm3 (0.00-0.10); IMMATURE GRAN PERCENT AUTO 1 % (0-1); LYMPHOCYTES ABSOLUTE AUTO 3.53 K/mm3 (0.84-5.20); LYMPHOCYTES PERCENT AUTO 27 % (21-46); MONOCYTES ABSOLUTE AUTO 1.23 K/mm3 (0.16-1.47); MONOCYTES PERCENT AUTO 9 % (4-13); Mean Corpuscular HGB 28.7 pg (26.0-34.0); Mean Corpuscular HGB Conc 32.3 g/dL (31.5-36.5); Mean Platelet Volume 10.6 fL (9.1-12.4); NEUTROPHILS ABSOLUTE AUTO 7.79 K/mm3 (1.96-9.15); NEUTROPHILS PERCENT AUTO 60 % (41-73); Platelet Count 315 K/mm3 (150-400); RDW Coefficient Variation 12.5 % (11.7-14.2); RDW Standard Deviation 40.6 fL (35.1-46.3); Red Blood Cell Count 4.25 M/mm3 (3.80-5.20); White Blood Cell Count 13.02 K/mm3 (4.00-11.30)
[2023-01-22 04:30] LABS: Mean Corpuscular Volume 89 fL (80-100)
[2023-01-22 04:43] LABS: Bun/Creatinine Ratio 16.4 (12.0-20.0); Creatinine, Blood 1.16 mg/dL (0.40-1.00); Magnesium, Blood 2.1 mg/dL (1.6-2.4); Potassium, Blood 3.1 mmol/L (3.5-5.5)
--- NOTE | 2023-01-22 06:24 | NUR ---
SHIFT SUMMARY PT IS A&O3-4, SHE CAN BE FORGETFUL BUT HAS BEEN USING HER CALL LIGHT FOR NEEDS MOST OF THE NIGHT. SHE IS A 1P SBA FOR [place], AND HAS BEEN UP IN THE CHAIR WATCHING TV MOST OF THE NIGHT. SHE HAS TAKEN A FEW NAPS BUT REFUSED ANY SLEEP AIDS. WHILE SHE HAS BEEN UP SHE HAS BEEN ON RA WITH SP02 >90%. WHEN SHE WAS TAKING A NAP SHE BEGAN TO DESATURATE TO THE UPPER 80'S SP02 AND HAD TO BE PLACED ON 2L NC TO MAINTAIN SP02 >90%. ON TELE THE PT HAS BEEN AFIB 90'S-100'S AND SHE HAS DENIES ANY ANGINA OR CHEST PRESSURE. PT HAS NOT HAS ANY COMPLAINTS AND HAS BEEN COOPERATIVE WITH CARE. FIRE IGNITION RISK HAS BEEN ASSESSED AND EDUCATION WAS PROVIDED. SEE NOTES FOR ANY UDATES.
--- NOTE | 2023-01-22 16:06 | NUR ---
CARE ASSUMPTION THIS RN ASSUMED CARE FROM JUNAID Unger RN AT 1530. PATIENT IS ALERT AND ORIENTED3-4. FORGETFUL AT TIMES. PATIENT IS ABLE TO MAKE NEEDS KNOWN AND USES CALL LIGHT APPROPRIATELY. PATIENT SITTING IN CHAIR WITH CALL LIGHT WITHIN REACH. PATIENT REPORTS NO PAIN, CHEST PAIN, OR SHORTNESS OF BREATH. PLAN OF CARE IS UP TO DATE. MEDICAL STATUS WITH TELE.
--- NOTE | 2023-01-22 18:23 | NUR ---
SHIFT SUMMARY PATIENT NERUO REMAINS UNCHAGED. NO ACUTE CHANGES. CALL LIGHT WITHIN REACH,
[2023-01-23 03:45] VITALS: BP 179/81
--- NOTE | 2023-01-23 03:51 | NUR ---
I CALLED DR. GARCIA ABOUT SBP >170. DR. GARCIA ORDERED HYDRALIZINE 10MG Q4 FOR SBP >160. ALSO, AND ORDER OF TYLENOL WAS OBTAINED DUE TO THE PT C/O RIGHT ARM PAIN. PAIN IS CONSTANT AND A THROB. PT HAS BEEN LAYING ON THAT ARM WHEN SLEEPING.
[2023-01-23 04:16] VITALS: BP 152/94
--- NOTE | 2023-01-23 06:07 | NUR ---
SHIFT SUMMARY PT IS A&OX4 AND HAS NOT BEEN FORGETFUL THIS SHIFT WHEN NEEDING TO GET OUT OF THE BED. THE PT IS VERY PLEASENTLY COOPERATIVE. SHE WAS PLACED ON 2L NC WHEN SLEEPING BECAUSE SHE DESATURATES TO THE 80'S. THE PT SATURATES >93% ON ROOM AIR WHEN SHE IS AWAKE. SHE HAS BEEN AFIB 80'S-100'S ON TELE AND HAS DENIED SOB. SHE HAD TO BE MEDICATED ONCE WITH 10MG HYDRALIZINE DUE TO HYPERTENSION. SHE WAS C/O RIGHT ARM PAIN AND WAS MEDICATED WITH TYLENOL. THE RIGHT ARM PAIN IS FROM HER ELBOW DOWN AND IT IS THROBBING. SHE HAS BEEN SLEEPING ON THAT ARM. BED ALARM IS ON. FIRE IGNITION RISK HAS BEEN ASSESSED. SEE NOTES FOR ANY UPDATES.
[2023-01-23 07:42] VITALS: BP 141/80
[2023-01-23 08:04] LABS: BASOPHILS ABSOLUTE AUTO 0.06 K/mm3 (0.00-0.23); BASOPHILS PERCENT AUTO 0 % (0-2); EOSINOPHILS ABSOLUTE AUTO 0.18 K/mm3 (0.00-0.68); EOSINOPHILS PERCENT AUTO 1 % (0-6); Hematocrit 36.7 % (33.0-51.0); Hemoglobin 11.9 g/dL (11.5-16.0); IMMATURE GRAN ABSOLUTE AUTO 0.07 K/mm3 (0.00-0.10); IMMATURE GRAN PERCENT AUTO 1 % (0-1); LYMPHOCYTES ABSOLUTE AUTO 2.81 K/mm3 (0.84-5.20); LYMPHOCYTES PERCENT AUTO 18 % (21-46); MONOCYTES ABSOLUTE AUTO 1.48 K/mm3 (0.16-1.47); MONOCYTES PERCENT AUTO 10 % (4-13); Mean Corpuscular HGB 28.3 pg (26.0-34.0); Mean Corpuscular HGB Conc 32.4 g/dL (31.5-36.5); Mean Corpuscular Volume 87 fL (80-100); Mean Platelet Volume 10.3 fL (9.1-12.4); NEUTROPHILS ABSOLUTE AUTO 10.85 K/mm3 (1.96-9.15); NEUTROPHILS PERCENT AUTO 70 % (41-73); Platelet Count 317 K/mm3 (150-400); RDW Coefficient Variation 12.7 % (11.7-14.2); White Blood Cell Count 15.45 K/mm3 (4.00-11.30)
[2023-01-23 08:27] LABS: Bun/Creatinine Ratio 18.4 (12.0-20.0); Calcium, Blood 9.1 mg/dL (8.5-10.1); Creatinine, Blood 1.03 mg/dL (0.40-1.00); Potassium, Blood 3.4 mmol/L (3.5-5.5)
--- NOTE | 2023-01-23 09:21 | NUR ---
care assumption this rn assumed care at 0700. vital signs stable. medical with tele. see shift assessment for further detials. patient siting in chair for breakfast. patient reports no chest pain/pressure or shortness of breath. patient reports pain off and on in her right shoulder, helps with repositioning and heat. plan of care is up to date. patient moving to room 348
--- NOTE | 2023-01-23 10:02 | NUR ---
TRANSFER this rn gave report to willam herrera. patient moving to room 348. patient has all belongings and left in no distress to new room. patient left via wheelchair.
[2023-01-23 15:05] VITALS: BP 121/94
--- NOTE | 2023-01-23 17:22 | NUR ---
SHIFT SUMMARY PT AxOx4. PLEASANT AND COOPERATIVE WITH CARE. PT ARRIVED FROM PCU TO MED FLOOR AT APPROX 1020. REPORT RECEIVED FROM JAILYN TORREZ. PT REPORTS BACK PAIN. HEAT PAD PROVIDED WITH REPORTED RELIEF. PT WORKED WITH PHYSCIAL THERAPY THIS SHIFT. FLUID RESTRICTION IN PLACE. CURRENT PLAN IS TO CONTINUE DIURESING AND POSSIBLE DC TOMORROW. PT IS CURRENTLY SITTING IN RECLINER WATCHING TV. DENIES ANY NEEDS AT THIS TIME. CALL LIGHT IN REACH.
--- NOTE | 2023-01-23 19:42 | NUR ---
NURSE NOTE AWAKE, ASSISTED TO BATHROOM FROM BEDSIDE CHAIR, TO VOID, THEN BACK TO BED. AFFECT CHEERFUL. DENIES DISTRESS. CALL LIGHT IN REACH. WILL CONTINUE TO MOJNITOR
[2023-01-23 19:51] VITALS: BP 131/69
[2023-01-24 03:21] VITALS: BP 146/79
--- NOTE | 2023-01-24 03:22 | NUR ---
OVEREDGE MACHINE OPERATOR SUMMARY HR 113, OTHERWISE VSS. PILSE TAKEN POST TRIP TO AND FROM THE BATHROOM. ASYMPTOMATIC. VOICED SOME DISCOMFORT OF HER RIGHT ARM AT HS, RECEIVED TYLENOL AND MED EFFECTIVE. HAS BEEN RESTING QUIETLY WITH FEW INTERRUPTIONS SINCE. NO C/O CHEST PAIN OR PRESSURE. ACCU CHECK AT HS 204. CHEERFUL AFFECT THROUGHOUT NOCT WHEN SPEAKING WITH STAFF. FLUID RESTRICTION CONTINUES. UP WITH ONE PERSON ASSIST/WALKER AND GAIT BELT WHEN NEEDING TO GET OUT OF BED. MED TELE A FIB ABOUT 100 WHEN REVIEWED. CALL LIGHT IN REACH. WILL CONTINUE TO MONITOR
[2023-01-24 07:31] VITALS: BP 151/72
[2023-01-24 08:30] LABS: BASOPHILS ABSOLUTE AUTO 0.06 K/mm3 (0.00-0.23); BASOPHILS PERCENT AUTO 1 % (0-2); EOSINOPHILS ABSOLUTE AUTO 0.16 K/mm3 (0.00-0.68); EOSINOPHILS PERCENT AUTO 1 % (0-6); Hematocrit 37.2 % (33.0-51.0); Hemoglobin 12.2 g/dL (11.5-16.0); IMMATURE GRAN ABSOLUTE AUTO 0.05 K/mm3 (0.00-0.10); IMMATURE GRAN PERCENT AUTO 0 % (0-1); LYMPHOCYTES ABSOLUTE AUTO 2.33 K/mm3 (0.84-5.20); LYMPHOCYTES PERCENT AUTO 18 % (21-46); MONOCYTES PERCENT AUTO 11 % (4-13); Mean Corpuscular HGB Conc 32.8 g/dL (31.5-36.5); Mean Corpuscular Volume 88 fL (80-100); Mean Platelet Volume 10.3 fL (9.1-12.4); NEUTROPHILS ABSOLUTE AUTO 9.13 K/mm3 (1.96-9.15); NEUTROPHILS PERCENT AUTO 70 % (41-73); Platelet Count 300 K/mm3 (150-400); RDW Coefficient Variation 12.5 % (11.7-14.2); Red Blood Cell Count 4.21 M/mm3 (3.80-5.20); White Blood Cell Count 13.13 K/mm3 (4.00-11.30)
[2023-01-24 08:45] LABS: Bun/Creatinine Ratio 18.5 (12.0-20.0); Calcium, Blood 9.2 mg/dL (8.5-10.1); Creatinine, Blood 1.08 mg/dL (0.40-1.00); Potassium, Blood 3.7 mmol/L (3.5-5.5)
[2023-01-24 15:11] VITALS: BP 150/92
--- NOTE | 2023-01-24 18:27 | NUR ---
PATIENT DISCHARGE HELD UNTIL FRIDAY WHEN THE [facility] CAN COME AND DO A ASSESSMENT FOR [facility]MISSION BACK TO THE [facility], AERT AND ORIENTED, FORGETFUL AND CONFUSED AT TIMES, EASILY REDIRECTED. AMBULATED WITH RT IN HALLS, PASSED HOME O2 EVALUATION, TELE DISCONTINUED, FLUID RESTRICTIONS, FWW AMBULATION IS PATIENTS BASELINE, PLEASANT TO CARE, CALL LIGHT WITH IN REACH
[2023-01-24 19:43] VITALS: BP 152/88
--- NOTE | 2023-01-25 04:51 | NUR ---
REPORT RECEIVED VERY PLEASENT PT WAS HOPING TO GO TODAY SO A LITTLE SAD WILL BE STAYING THROUGH THE WEEKEND. PT STRUGGLED TO MAKE SENSE OF THINGS AND WAS SLIGHTLY CONFUSED THROUGHOUT THE NIGHT PT WAS STEADY ON FEET AND WAS ABLE TO USE BATH ROOM ON HER OWN, NOT CHANGE IN CONDITION PT SLEEPING
[2023-01-25 05:02] VITALS: BP 158/79
[2023-01-25 07:31] VITALS: BP 152/76
[2023-01-25 08:26] LABS: Bun/Creatinine Ratio 21.1 (12.0-20.0); Calcium, Blood 9.2 mg/dL (8.5-10.1); Creatinine, Blood 1.09 mg/dL (0.40-1.00); Potassium, Blood 3.4 mmol/L (3.5-5.5)
[2023-01-25 08:27] LABS: BASOPHILS ABSOLUTE AUTO 0.07 K/mm3 (0.00-0.23); BASOPHILS PERCENT AUTO 1 % (0-2); EOSINOPHILS ABSOLUTE AUTO 0.18 K/mm3 (0.00-0.68); EOSINOPHILS PERCENT AUTO 1 % (0-6); Hematocrit 36.4 % (33.0-51.0); Hemoglobin 11.8 g/dL (11.5-16.0); IMMATURE GRAN ABSOLUTE AUTO 0.04 K/mm3 (0.00-0.10); IMMATURE GRAN PERCENT AUTO 0 % (0-1); LYMPHOCYTES ABSOLUTE AUTO 2.63 K/mm3 (0.84-5.20); LYMPHOCYTES PERCENT AUTO 20 % (21-46); MONOCYTES ABSOLUTE AUTO 1.49 K/mm3 (0.16-1.47); MONOCYTES PERCENT AUTO 11 % (4-13); Mean Corpuscular HGB 28.4 pg (26.0-34.0); Mean Corpuscular HGB Conc 32.4 g/dL (31.5-36.5); Mean Corpuscular Volume 88 fL (80-100); Mean Platelet Volume 10.9 fL (9.1-12.4); NEUTROPHILS ABSOLUTE AUTO 8.66 K/mm3 (1.96-9.15); NEUTROPHILS PERCENT AUTO 66 % (41-73); Platelet Count 288 K/mm3 (150-400); RDW Coefficient Variation 12.5 % (11.7-14.2); RDW Standard Deviation 39.7 fL (35.1-46.3); Red Blood Cell Count 4.16 M/mm3 (3.80-5.20); White Blood Cell Count 13.07 K/mm3 (4.00-11.30)
[2023-01-25 16:10] VITALS: BP 123/53
--- NOTE | 2023-01-25 18:32 | NUR ---
SHIFT SUMMARY: PT HAS BEEN PLEASANT AND COOPERATIVE T/O SHIFT. AWAITING DISCHARGE DUE TO NEEDING NURSE AT FACILITY TO EVALUATE PRIOR TO DC. CALLS APPROPRIATELY, NO FURTHER NEEDS OR CONCERNS AT THIS TIME.
[2023-01-25 19:27] VITALS: BP 135/85
--- NOTE | 2023-01-26 04:17 | NUR ---
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 SAT UP IN THE CHAIR AND WATCHED MOVIES UNTOL APPROX 2AM THAN AGREED TO TRY TO SLEEP. PT CONT URINE, AMBULATES TO BATHROOM SBA. PT C/O PAIN WITH ROM IN R ARM, SHOULDER, MEDICATED WITH TYLENOL HS, PAIN RESOLVED SOME AFTER TYLENOL AND SOME INSTRUCTED ROM. TOLERATING ORAL FLUIDS, ON RESTRICTION. WEIGHT OBTAINED THIS AM.
[2023-01-26 04:18] VITALS: BP 140/82
[2023-01-26 05:21] LABS: Bun/Creatinine Ratio 22.8 (12.0-20.0); Calcium, Blood 8.7 mg/dL (8.5-10.1); Creatinine, Blood 1.01 mg/dL (0.40-1.00); Potassium, Blood 3.3 mmol/L (3.5-5.5)
--- NOTE | 2023-01-26 07:14 | NUR ---
ASSUMED CARE: PT RESTING QUIETLY AT THIS TIME. NO ACUTE NEEDS OR CONCERNS.
[2023-01-26 07:44] VITALS: BP 149/97
[2023-01-26 15:59] VITALS: BP 137/89
--- NOTE | 2023-01-26 18:10 | NUR ---
SHIFT SUMMARY: PT UP TO CHAIR MULTIPLE TIMES TODAY. CALLS APPROPRIATELY. PLAN FOR DC AFTER EVALUATION FROM NURSING FACILITY. NO ACUTE NEEDS OR CONCERNS AT THIS TIME.
[2023-01-26 20:29] VITALS: BP 137/86
[2023-01-27 03:40] VITALS: BP 160/76
[2023-01-27 03:41] VITALS: BP 160/76
--- NOTE | 2023-01-27 05:53 | NUR ---
SUMMARY- PT STATES SHE HAD GOOD SLEEP FROM ABOUT MN ON- PT HAS BEEN ALERT/ORIENTED 3-4, MILD CONFUSION AT TIMES. RE ORIENTS EASILY. USES CALL LIGHT. AMBULATES ABOUT HER ROOM STEADY ON FEET WITH SBA, INDEPENDANT SHORT DISTANCES. PT IS ON ROOM AIR, RESP UNLABORED. TOLERATING FOOD AND FLUID, COMPOLIANT WITH FLUID RESTRICTION. PT HOPEFUL TO BE ABLE TO GO BACK TO [facility] TODAY, FEELS READY.
[2023-01-27 06:14] LABS: BASOPHILS ABSOLUTE AUTO 0.08 K/mm3 (0.00-0.23); BASOPHILS PERCENT AUTO 1 % (0-2); EOSINOPHILS ABSOLUTE AUTO 0.39 K/mm3 (0.00-0.68); EOSINOPHILS PERCENT AUTO 3 % (0-6); IMMATURE GRAN ABSOLUTE AUTO 0.04 K/mm3 (0.00-0.10); IMMATURE GRAN PERCENT AUTO 0 % (0-1); LYMPHOCYTES ABSOLUTE AUTO 2.91 K/mm3 (0.84-5.20); LYMPHOCYTES PERCENT AUTO 25 % (21-46); MONOCYTES ABSOLUTE AUTO 1.15 K/mm3 (0.16-1.47); MONOCYTES PERCENT AUTO 10 % (4-13); Mean Corpuscular HGB 28.5 pg (26.0-34.0); Mean Corpuscular HGB Conc 32.4 g/dL (31.5-36.5); Mean Corpuscular Volume 88 fL (80-100); Mean Platelet Volume 10.4 fL (9.1-12.4); NEUTROPHILS ABSOLUTE AUTO 6.96 K/mm3 (1.96-9.15); NEUTROPHILS PERCENT AUTO 60 % (41-73); Platelet Count 329 K/mm3 (150-400); RDW Coefficient Variation 12.3 % (11.7-14.2); RDW Standard Deviation 39.4 fL (35.1-46.3); Red Blood Cell Count 3.86 M/mm3 (3.80-5.20); White Blood Cell Count 11.53 K/mm3 (4.00-11.30)
[2023-01-27 06:44] LABS: Calcium, Blood 8.7 mg/dL (8.5-10.1); Potassium, Blood 2.9 mmol/L (3.5-5.5)
[2023-01-27 07:41] VITALS: BP 156/83
--- NOTE | 2023-01-27 13:48 | NUR ---
THE PATIENT WAS DISCHARGED TO [facility], AFTER DISCHARE INSTRUCTIONS WERE GIVEN TO THE PATIENT AND FAXED TO [facility].
== END 2023-01-27 13:17 | disposition hospice, inpatient (51) | DRG 291 ==
LOC: ER 08:30 → MEDS 11:02 → PCU 11:02 → MEDS 01-23 10:10 → ENPENDDIS 01-24 13:08 → MEDS 01-24 15:22
PROVIDERS: Emergency Medicine; Hospitalist; ADMIT Internal Medicine
PROC: 5A09357 Assistance with Respiratory Ventilation, Less than 24 Consecutive Hours, Continuous Positive Airway Pressure (ICD-10-PCS; principal; 2023-01-20)
DX: I13.0 Hypertensive heart and chronic kidney disease with heart failure and stage 1 through stage 4 chronic kidney disease, or unspecified chronic kidney disease (principal); I50.31 Acute diastolic (congestive) heart failure; J96.01 Acute respiratory failure with hypoxia; J96.02 Acute respiratory failure with hypercapnia; J18.9 Pneumonia, unspecified organism; F03.94 Unspecified dementia, unspecified severity, with anxiety; F03.93 Unspecified dementia, unspecified severity, with mood disturbance; J44.0 Chronic obstructive pulmonary disease with (acute) lower respiratory infection; E78.5 Hyperlipidemia, unspecified; I25.10 Atherosclerotic heart disease of native coronary artery without angina pectoris; I35.0 Nonrheumatic aortic (valve) stenosis; R77.8 Other specified abnormalities of plasma proteins; N18.30 Chronic kidney disease, stage 3 unspecified; E11.22 Type 2 diabetes mellitus with diabetic chronic kidney disease; I48.0 Paroxysmal atrial fibrillation; Z66 Do not resuscitate; G47.33 Obstructive sleep apnea (adult) (pediatric); D72.829 Elevated white blood cell count, unspecified; Z96.653 Presence of artificial knee joint, bilateral; E11.65 Type 2 diabetes mellitus with hyperglycemia; Z90.49 Acquired absence of other specified parts of digestive tract; Z90.710 Acquired absence of both cervix and uterus; Z88.8 Allergy status to other drugs, medicaments and biological substances; Z91.041 Radiographic dye allergy status; Z79.84 Long term (current) use of oral hypoglycemic drugs; Z79.891 Long term (current) use of opiate analgesic; Z79.899 Other long term (current) drug therapy; Z79.52 Long term (current) use of systemic steroids; Z90.89 Acquired absence of other organs; Z90.79 Acquired absence of other genital organ(s); Z90.722 Acquired absence of ovaries, bilateral; Z85.42 Personal history of malignant neoplasm of other parts of uterus
CPT/HCPCS: 36415; 71045; 80048; 80053; 82803; 82947; 83735; 83880; 84145; 84484; 85025; 93005; 93010; 93306; 94660; 94760; 94761; 94762; 96374-59; 97110; 97116; 97162; 97165; 97535; 99285-25; A9270; J0360; J0696; J1650; J1815; J1940; J2060; J7050

== ENCOUNTER 2023-06-08 16:16 | Emergency (ER) | payer MEDICARE, OTHER ==
[~2023-06-08] VITALS: Ht 162.6 cm; Wt 104.3 kg
[~2023-06-08 16:16] MED LIST changes: +ALUM-MAG HYDRO360 M1 PO; +B-12500 MC2 PO; +DIPATR PO; +MULVITA PO; +NYSTOP15 GM TOP; +Vitamin D1000 UNI1 PO
[2023-06-08 19:29] VITALS: BP 165/57
== END 2023-06-08 19:30 | disposition home or self-care (01) ==
LOC: ER 16:16
DX: S61.233A Puncture wound without foreign body of left middle finger without damage to nail, initial encounter (principal); W22.8XXA Striking against or struck by other objects, initial encounter; Z88.8 Allergy status to other drugs, medicaments and biological substances; Z79.899 Other long term (current) drug therapy; E11.9 Type 2 diabetes mellitus without complications; I10 Essential (primary) hypertension; J44.9 Chronic obstructive pulmonary disease, unspecified; E78.5 Hyperlipidemia, unspecified; I48.91 Unspecified atrial fibrillation
CPT/HCPCS: 12001; 73140; 99283-25

== ENCOUNTER → 2023-08-29 | Outpatient (CLI) | payer MEDICARE, OTHER ==
[2023-08-29 17:34] LABS: Source, Urine Voided
[2023-08-29 18:35] LABS: Appearance, Urine Clear (Clear); Bilirubin, Urine Neg (Neg); Blood, Urine Neg (Neg); Color, Urine Yellow (P-Yellow); Glucose Qualitative, Urine Neg (Neg); Ketones, Urine Neg (Neg); Leukocyte Esterase, Urine Neg (Neg); Nitrite, Urine Neg (Neg); Protein, Urine Neg (Neg); Specific Gravity, Urine 1.015 (1.003-1.022); Urobilinogen, Urine NORM (Normal)
== END | disposition home or self-care (01) ==
LOC: LAB SHORT 17:31 → LAB 17:31
PROVIDERS: Physician Assistant
DX: N39.0 Urinary tract infection, site not specified (principal)
CPT/HCPCS: 81003; 87086

== ENCOUNTER → 2023-09-09 | Outpatient (CLI) | payer MEDICARE, OTHER ==
[2023-09-09 18:11] LABS: Source, Urine Voided
[2023-09-09 19:34] LABS: Appearance, Urine Clear (Clear); Bilirubin, Urine Neg (Neg); Blood, Urine Neg (Neg); Color, Urine Pale Yellow (P-Yellow); Glucose Qualitative, Urine Neg (Neg); Ketones, Urine Neg (Neg); Leukocyte Esterase, Urine Neg (Neg); Nitrite, Urine Neg (Neg); Protein, Urine Neg (Neg); Specific Gravity, Urine 1.015 (1.003-1.022); Urobilinogen, Urine NORM (Normal)
== END | disposition home or self-care (01) ==
LOC: LAB SHORT 18:07 → LAB 18:07
PROVIDERS: Physician Assistant
DX: N39.0 Urinary tract infection, site not specified (principal)
CPT/HCPCS: 81003; 87086

== ENCOUNTER → 2023-10-13 | Outpatient (CLI) | payer MEDICARE, OTHER ==
[2023-10-13 17:44] LABS: Appearance, Urine Clear (Clear); Bilirubin, Urine Neg (Neg); Blood, Urine Neg (Neg); Color, Urine Yellow (P-Yellow); Glucose Qualitative, Urine Neg (Neg); Ketones, Urine Neg (Neg); Leukocyte Esterase, Urine Neg (Neg); Nitrite, Urine Neg (Neg); Protein, Urine Neg (Neg); Urobilinogen, Urine NORM (Normal)
== END ==
LOC: LAB 14:00 → LAB SHORT 14:00
PROVIDERS: Physician Assistant
DX: N39.0 Urinary tract infection, site not specified (principal)
CPT/HCPCS: 81003; 87086

== ENCOUNTER → 2023-11-17 | Outpatient (CLI) | payer MEDICARE, OTHER ==
[2023-11-17 17:04] LABS: Appearance, Urine Clear (Clear); Bilirubin, Urine Neg (Neg); Blood, Urine Neg (Neg); Glucose Qualitative, Urine Neg (Neg); Ketones, Urine Neg (Neg); Leukocyte Esterase, Urine Neg (Neg); Nitrite, Urine Neg (Neg); Protein, Urine Neg (Neg); Urobilinogen, Urine NORM (Normal)
[2023-11-17 17:49] LABS: Color, Urine Pale Yellow (P-Yellow)
== END | disposition home or self-care (01) ==
LOC: LAB SHORT 12:45 → LAB 12:45
PROVIDERS: Physician Assistant
DX: N39.0 Urinary tract infection, site not specified (principal)
CPT/HCPCS: 81003; 87086

== ENCOUNTER → 2024-02-16 | Outpatient (CLI) | payer MEDICARE, OTHER ==
[2024-02-16 16:11] LABS: Source, Urine Voided
[2024-02-16 17:33] LABS: Appearance, Urine Clear (Clear); Bilirubin, Urine Neg (Neg); Blood, Urine Neg (Neg); Color, Urine Yellow (P-Yellow); Glucose Qualitative, Urine Neg (Neg); Ketones, Urine Neg (Neg); Leukocyte Esterase, Urine 2+ (Neg); Nitrite, Urine Neg (Neg); Protein, Urine Neg (Neg); Specific Gravity, Urine 1.015 (1.003-1.022); Urobilinogen, Urine NORM (Normal)
[2024-02-16 17:42] LABS: Red Blood Cells, Urine 0-2 /hpf (0-2)
[2024-02-16 17:43] LABS: Bacteria Few /hpf; Squamous Epithelial Cells Few /hpf (Few)
== END | disposition home or self-care (01) ==
LOC: LAB SHORT 16:07 → LAB 16:07
PROVIDERS: Physician Assistant
DX: N39.0 Urinary tract infection, site not specified (principal)
CPT/HCPCS: 81001; 87086

== ENCOUNTER → 2024-02-19 | Outpatient (CLI) | payer MEDICARE, OTHER ==
[2024-02-19 11:23] LABS: Source, Urine Voided
[2024-02-19 14:06] LABS: Appearance, Urine Clear (Clear); Bilirubin, Urine Neg (Neg); Blood, Urine Neg (Neg); Color, Urine Yellow (P-Yellow); Glucose Qualitative, Urine Neg (Neg); Ketones, Urine Neg (Neg); Leukocyte Esterase, Urine 1+ (Neg); Nitrite, Urine Neg (Neg); Protein, Urine Neg (Neg); Urobilinogen, Urine NORM (Normal)
[2024-02-19 14:17] LABS: Bacteria Few /hpf; Red Blood Cells, Urine Not Seen /hpf (0-2); Squamous Epithelial Cells Few /hpf (Few)
== END ==
LOC: LAB 11:20 → LAB SHORT 11:20
PROVIDERS: Physician Assistant
DX: N39.0 Urinary tract infection, site not specified (principal)
CPT/HCPCS: 81001; 87086

== ENCOUNTER 2024-02-21 20:24 | Emergency (ER) | payer MEDICARE, OTHER ==
[~2024-02-21] VITALS: Ht 162.6 cm; Wt 90.7 kg
[2024-02-21 20:29] VITALS: BP 160/92
[2024-02-21 21:01] LABS: Source, Urine Clean Catch
[2024-02-21 21:04] LABS: Appearance, Urine Clear (Clear); Bilirubin, Urine Neg (Neg); Blood, Urine Neg (Neg); Color, Urine Yellow (P-Yellow); Glucose Qualitative, Urine Neg (Neg); Ketones, Urine Neg (Neg); Leukocyte Esterase, Urine 1+ (Neg); Nitrite, Urine Neg (Neg); Protein, Urine Neg (Neg); Urobilinogen, Urine NORM (Normal)
[2024-02-21 21:21] LABS: Bacteria Few /hpf; Red Blood Cells, Urine Not Seen /hpf (0-2); Squamous Epithelial Cells Mod /hpf (Few); White Blood Cells, Urine 0-2 /hpf (0-5)
== END 2024-02-21 21:55 | disposition home or self-care (01) ==
LOC: ER 20:24
PROVIDERS: Physician Assistant
DX: M54.50 Low back pain, unspecified (principal); W18.30XA Fall on same level, unspecified, initial encounter; Z88.8 Allergy status to other drugs, medicaments and biological substances; Z79.899 Other long term (current) drug therapy; E11.9 Type 2 diabetes mellitus without complications; I10 Essential (primary) hypertension; E78.5 Hyperlipidemia, unspecified; J44.9 Chronic obstructive pulmonary disease, unspecified; I48.91 Unspecified atrial fibrillation; I25.10 Atherosclerotic heart disease of native coronary artery without angina pectoris
CPT/HCPCS: 81001; 87086; 99283

== ENCOUNTER → 2024-05-17 | Outpatient (CLI) | payer MEDICARE, OTHER ==
[2024-05-17 15:56] LABS: Source, Urine Voided
[2024-05-17 17:15] LABS: Appearance, Urine Clear (Clear); Bilirubin, Urine Neg (Neg); Blood, Urine Neg (Neg); Color, Urine Yellow (P-Yellow); Glucose Qualitative, Urine 2+ (Neg); Ketones, Urine Neg (Neg); Leukocyte Esterase, Urine Neg (Neg); Nitrite, Urine Neg (Neg); Protein, Urine 1+ (Neg); Specific Gravity, Urine 1.015 (1.003-1.022); Urobilinogen, Urine NORM (Normal)
== END ==
LOC: LAB SHORT 15:53 → LAB 15:53
PROVIDERS: Physician Assistant
DX: N39.0 Urinary tract infection, site not specified (principal)
CPT/HCPCS: 87086

== ENCOUNTER 2024-06-25 14:47 | Emergency (ER) | payer MEDICARE, OTHER ==
[~2024-06-25] VITALS: Ht 165.1 cm; Wt 108.9 kg
[2024-06-25] MEDS ORDERED: Mag Sulfate 1 GM/D5% 100ML 100 ML IV ONE (15:10)
[2024-06-25 15:36] LABS: BASOPHILS ABSOLUTE AUTO 0.08 K/mm3 (0.00-0.23); BASOPHILS PERCENT AUTO 1 % (0-2); EOSINOPHILS ABSOLUTE AUTO 0.06 K/mm3 (0.00-0.68); EOSINOPHILS PERCENT AUTO 1 % (0-6); Hematocrit 38.8 % (33.0-51.0); Hemoglobin 13.1 g/dL (11.5-16.0); IMMATURE GRAN ABSOLUTE AUTO 0.07 K/mm3 (0.00-0.10); IMMATURE GRAN PERCENT AUTO 1 % (0-1); LYMPHOCYTES ABSOLUTE AUTO 1.46 K/mm3 (0.84-5.20); LYMPHOCYTES PERCENT AUTO 13 % (21-46); MONOCYTES ABSOLUTE AUTO 0.87 K/mm3 (0.16-1.47); MONOCYTES PERCENT AUTO 8 % (4-13); Mean Corpuscular HGB 29.2 pg (26.0-34.0); Mean Corpuscular HGB Conc 33.8 g/dL (31.5-36.5); Mean Corpuscular Volume 86 fL (80-100); Mean Platelet Volume 10.9 fL (9.1-12.4); NEUTROPHILS ABSOLUTE AUTO 8.41 K/mm3 (1.96-9.15); NEUTROPHILS PERCENT AUTO 77 % (41-73); Platelet Count 251 K/mm3 (150-400); RDW Coefficient Variation 12.4 % (11.7-14.2); RDW Standard Deviation 39.3 fL (35.1-46.3); Red Blood Cell Count 4.49 M/mm3 (3.80-5.20); White Blood Cell Count 10.95 K/mm3 (4.00-11.30)
[2024-06-25 15:48] LABS: Source, Urine Clean Catch
[2024-06-25 15:52] LABS: Appearance, Urine Clear (Clear); Bilirubin, Urine Neg (Neg); Blood, Urine Neg (Neg); Color, Urine Yellow (P-Yellow); Glucose Qualitative, Urine 2+ (Neg); Ketones, Urine Neg (Neg); Leukocyte Esterase, Urine 1+ (Neg); Nitrite, Urine Neg (Neg); Protein, Urine Neg (Neg); Urobilinogen, Urine NORM (Normal)
[2024-06-25 15:56] LABS: Albumin, Blood 3.5 g/dL (3.4-5.0); Albumin/Globulin Ratio 0.8 (0.8-1.8); Bilirubin, Total 0.5 mg/dL (0.1-1.0); Bun/Creatinine Ratio 15.6 (12.0-20.0); Creatinine, Blood 1.47 mg/dL (0.40-1.00); Free Thyroxine 1.18 ng/dL (0.70-1.60); Globulin, Blood 4.4 g/dL (2.2-4.0); Potassium, Blood 3.9 mmol/L (3.5-5.5); Thyroid Stimulating Hormone 4.62 uIU/mL (0.360-4.800); Total Protein, Blood 7.9 g/dL (6.4-8.2)
[2024-06-25 15:59] LABS: Bacteria Few /hpf; Red Blood Cells, Urine 0-2 /hpf (0-2); Squamous Epithelial Cells Few /hpf (Few); Transitional Epithelial Cells Rare /hpf (0-Rare)
[2024-06-25] MEDS ORDERED: NS 1,000 ML IV SCH (16:05)
[2024-06-25 16:28] LABS: Influenza A, PCR NEGATIVE (NEGATIVE); Influenza B, PCR NEGATIVE (NEGATIVE); Resp Syncytial Virus, PCR NEGATIVE (NEGATIVE); SARS-Cov-2 (COVID-19) PCR, MMC NEGATIVE (NEGATIVE)
[2024-06-25 19:30] VITALS: BP 157/55
== END 2024-06-25 20:20 | disposition home or self-care (01) ==
LOC: ER 14:47
PROVIDERS: Emergency Medicine
DX: R53.1 Weakness (principal); R79.89 Other specified abnormal findings of blood chemistry; E11.9 Type 2 diabetes mellitus without complications; E78.5 Hyperlipidemia, unspecified; J44.9 Chronic obstructive pulmonary disease, unspecified; I48.91 Unspecified atrial fibrillation; N39.0 Urinary tract infection, site not specified; Z79.51 Long term (current) use of inhaled steroids; Z79.899 Other long term (current) drug therapy; Z88.8 Allergy status to other drugs, medicaments and biological substances; Z91.041 Radiographic dye allergy status
CPT/HCPCS: 0241U; 71045; 80053; 81001; 84439; 84443; 85025; 87086; 93005; 93010; 96365; 96366; 99284-25; J3475; J7030

== ENCOUNTER → 2024-06-25 | Outpatient (CLI) | payer MEDICARE, OTHER ==
[2024-06-25 10:15] LABS: Source, Urine Voided
[2024-06-25 10:41] LABS: Appearance, Urine Clear (Clear); Bilirubin, Urine Neg (Neg); Blood, Urine Neg (Neg); Color, Urine Yellow (P-Yellow); Glucose Qualitative, Urine Neg (Neg); Ketones, Urine Neg (Neg); Leukocyte Esterase, Urine 1+ (Neg); Nitrite, Urine Neg (Neg); Protein, Urine 2+ (Neg); Specific Gravity, Urine 1.015 (1.003-1.022); Urobilinogen, Urine NORM (Normal)
[2024-06-25 10:53] LABS: Red Blood Cells, Urine 0-2 /hpf (0-2); Squamous Epithelial Cells Rare /hpf (Few); White Blood Cells, Urine 0-2 /hpf (0-5)
[2024-06-25 10:54] LABS: Bacteria Few /hpf
[2024-06-25 10:56] LABS: Transitional Epithelial Cells Rare /hpf (0-Rare)
== END ==
LOC: LAB SHORT 10:12
PROVIDERS: Physician Assistant
DX: N39.0 Urinary tract infection, site not specified (principal)
CPT/HCPCS: 81001; 87086

== ENCOUNTER 2024-07-07 09:15 | Emergency (ER) | payer MEDICARE, OTHER ==
[~2024-07-07] VITALS: Ht 165.1 cm; Wt 108.9 kg
[2024-07-07 10:09] VITALS: BP 135/98
[2024-07-07 10:33] LABS: BASOPHILS ABSOLUTE AUTO 0.07 K/mm3 (0.00-0.23); BASOPHILS PERCENT AUTO 0 % (0-2); EOSINOPHILS ABSOLUTE AUTO 0.16 K/mm3 (0.00-0.68); EOSINOPHILS PERCENT AUTO 1 % (0-6); Hematocrit 37.9 % (33.0-51.0); Hemoglobin 12.6 g/dL (11.5-16.0); IMMATURE GRAN ABSOLUTE AUTO 0.11 K/mm3 (0.00-0.10); IMMATURE GRAN PERCENT AUTO 1 % (0-1); LYMPHOCYTES ABSOLUTE AUTO 1.86 K/mm3 (0.84-5.20); LYMPHOCYTES PERCENT AUTO 11 % (21-46); MONOCYTES ABSOLUTE AUTO 1.52 K/mm3 (0.16-1.47); MONOCYTES PERCENT AUTO 9 % (4-13); Mean Corpuscular HGB Conc 33.2 g/dL (31.5-36.5); Mean Corpuscular Volume 87 fL (80-100); Mean Platelet Volume 10.3 fL (9.1-12.4); NEUTROPHILS ABSOLUTE AUTO 13.24 K/mm3 (1.96-9.15); NEUTROPHILS PERCENT AUTO 78 % (41-73); Platelet Count 282 K/mm3 (150-400); RDW Coefficient Variation 12.5 % (11.7-14.2); RDW Standard Deviation 39.9 fL (35.1-46.3); Red Blood Cell Count 4.34 M/mm3 (3.80-5.20); White Blood Cell Count 16.96 K/mm3 (4.00-11.30)
[2024-07-07 10:59] LABS: Albumin, Blood 3.2 g/dL (3.4-5.0); Albumin/Globulin Ratio 0.7 (0.8-1.8); Bilirubin, Total 0.5 mg/dL (0.1-1.0); Bun/Creatinine Ratio 19.6 (12.0-20.0); Calcium, Blood 9.5 mg/dL (8.5-10.1); Creatinine, Blood 1.12 mg/dL (0.40-1.00); Globulin, Blood 4.6 g/dL (2.2-4.0); Potassium, Blood 4.6 mmol/L (3.5-5.5); Total Protein, Blood 7.8 g/dL (6.4-8.2)
== END 2024-07-07 12:40 | disposition home or self-care (01) ==
LOC: ER 09:15
PROVIDERS: Physician Assistant
DX: J44.1 Chronic obstructive pulmonary disease with (acute) exacerbation (principal); E11.9 Type 2 diabetes mellitus without complications; E78.5 Hyperlipidemia, unspecified; I10 Essential (primary) hypertension; I48.91 Unspecified atrial fibrillation; Z79.2 Long term (current) use of antibiotics; Z79.899 Other long term (current) drug therapy; Z79.84 Long term (current) use of oral hypoglycemic drugs; Z79.891 Long term (current) use of opiate analgesic; Z88.8 Allergy status to other drugs, medicaments and biological substances; Z91.041 Radiographic dye allergy status; Z88.4 Allergy status to anesthetic agent
CPT/HCPCS: 71046; 80053; 85025; 99285-25

== ENCOUNTER → 2024-07-20 | Outpatient (CLI) | payer MEDICARE, OTHER ==
[2024-07-21 10:57] LABS: Source, Urine Voided
[2024-07-21 13:08] LABS: Appearance, Urine Clear (Clear); Bilirubin, Urine Neg (Neg); Blood, Urine Neg (Neg); Color, Urine Yellow (P-Yellow); Glucose Qualitative, Urine Neg (Neg); Ketones, Urine Neg (Neg); Leukocyte Esterase, Urine Neg (Neg); Nitrite, Urine Neg (Neg); Protein, Urine 1+ (Neg); Urobilinogen, Urine NORM (Normal); pH, Urine 6.5 (5.0-8.0)
== END ==
LOC: LAB 10:54 → LAB SHORT 10:54
PROVIDERS: Physician Assistant
DX: N39.0 Urinary tract infection, site not specified (principal)
CPT/HCPCS: 87077; 87086; 87186

== ENCOUNTER 2024-07-25 23:02 | Inpatient (IN) | payer MEDICARE, OTHER ==
[~2024-07-25] VITALS: Ht 165.1 cm; Wt 97.3 kg
[2024-07-25] MEDS ORDERED: Albuterol 2.5 MG/3 ML VIAL INH SCH (23:45)
[2024-07-25 23:52] LABS: BASOPHILS ABSOLUTE AUTO 0.07 K/mm3 (0.00-0.23); BASOPHILS PERCENT AUTO 1 % (0-2); EOSINOPHILS ABSOLUTE AUTO 0.19 K/mm3 (0.00-0.68); EOSINOPHILS PERCENT AUTO 2 % (0-6); Hemoglobin 12.1 g/dL (11.5-16.0); IMMATURE GRAN ABSOLUTE AUTO 0.09 K/mm3 (0.00-0.10); IMMATURE GRAN PERCENT AUTO 1 % (0-1); LYMPHOCYTES ABSOLUTE AUTO 1.01 K/mm3 (0.84-5.20); LYMPHOCYTES PERCENT AUTO 8 % (21-46); MONOCYTES ABSOLUTE AUTO 1.32 K/mm3 (0.16-1.47); MONOCYTES PERCENT AUTO 11 % (4-13); Mean Corpuscular HGB 28.4 pg (26.0-34.0); Mean Corpuscular HGB Conc 31.8 g/dL (31.5-36.5); Mean Corpuscular Volume 89 fL (80-100); Mean Platelet Volume 10.6 fL (9.1-12.4); NEUTROPHILS PERCENT AUTO 78 % (41-73); Platelet Count 311 K/mm3 (150-400); RDW Coefficient Variation 13.4 % (11.7-14.2); RDW Standard Deviation 43.7 fL (35.1-46.3); Red Blood Cell Count 4.26 M/mm3 (3.80-5.20); White Blood Cell Count 12.38 K/mm3 (4.00-11.30)
[2024-07-26 00:03] LABS: Albumin, Blood 2.9 g/dL (3.4-5.0); Albumin/Globulin Ratio 0.7 (0.8-1.8); Bilirubin, Total 0.5 mg/dL (0.1-1.0); Calcium, Blood 8.6 mg/dL (8.5-10.1); Creatinine, Blood 1.19 mg/dL (0.40-1.00); Globulin, Blood 4.1 g/dL (2.2-4.0); Potassium, Blood 3.9 mmol/L (3.5-5.5)
[2024-07-26 00:07] LABS: Base Excess Venous 3.3 mmol/L; Bicarbonate Venous 26.4 mmol/L (24.0-30.0); PCO2 Venous 48.9 mmHg (38-42); pH Blood Venous 7.38 (7.34-7.37)
[2024-07-26 00:29] LABS: Influenza A, PCR NEGATIVE (NEGATIVE); Influenza B, PCR NEGATIVE (NEGATIVE); Resp Syncytial Virus, PCR NEGATIVE (NEGATIVE); SARS-Cov-2 (COVID-19) PCR, MMC NEGATIVE (NEGATIVE)
[2024-07-26] MEDS ORDERED: Furosemide 10 MG/ML 4ML Vial IV ONE (00:55)
[2024-07-26] MEDS ORDERED: CefTRIAXone Sodium 1,000 MG in NS 100 ML IV ONE (01:25)
[2024-07-26 01:52] LABS: Bilirubin, Urine Neg (Neg); Blood, Urine Neg (Neg); Glucose Qualitative, Urine Neg (Neg); Ketones, Urine Neg (Neg); Leukocyte Esterase, Urine Neg (Neg); Nitrite, Urine Neg (Neg); Protein, Urine 2+ (Neg); Source, Urine Straight Cath; Urobilinogen, Urine NORM (Normal)
[2024-07-26 01:58] LABS: Appearance, Urine Clear (Clear); Color, Urine Yellow (P-Yellow)
[2024-07-26 01:59] LABS: Amorphous Light (0-Heavy); Bacteria Few /hpf; Hyaline Casts 25-50 /lpf (0-2); Red Blood Cells, Urine Not Seen /hpf (0-2); Squamous Epithelial Cells Rare /hpf (Few); White Blood Cells, Urine 0-2 /hpf (0-5)
[2024-07-26] MEDS ORDERED: FLU VACC TS2024-25(6MOS UP)/PF 45 MCG/0.5 ML SYRINGE IM ONE (02:10)
[2024-07-26 03:51] VITALS: BP 124/78
[2024-07-26 04:51] LABS: Base Excess Venous 0.5 mmol/L; Bicarbonate Venous 25.3 mmol/L (24.0-30.0); PCO2 Venous 32.9 mmHg (38-42); pH Blood Venous 7.47 (7.34-7.37)
--- NOTE | 2024-07-26 05:13 | NUR ---
SHIFT SUMMARY NEURO: PT ALERT TO SELF AND YEAR. PT STATED THEY ARE IN [place], UNSURE OF DATE OR LOCATION. EQUAL STRENGTH THROUGHOUT WITH SOME TREMOR IN UPPER EXTREMETIES. PERRLA. ER CONTENT WRITER A/OX4. VERIFIED WITH NURSE AT [facility] THAT PATIENT IS AT THEIR BASELINE MENTAL STATUS, AND REPORTED THAT PATIENT "HAS GOOD DAYS AND BAD DAYS". CARDIAC: PULSES PRESENT THROUGHOUT. DISTANT HEART TONES. AFIB WITH A RATE IN THE 80'S. NO C/O CP. LUNGS: PT ON 4L NC. PT PREVIOUSLY ON 04/16 45% BIPAP. CRACKLES IN UPPER LOBES NOT CLEARED WITH COUGHING. PT STATES THEY ARE NOT SOB. SKIN: SCATTERED BRUISING AND YEAST EXCORIATION IN FOLDS.
[2024-07-26 07:25] VITALS: BP 122/63
[2024-07-26] MEDS ORDERED: Insulin Human Lispro 100 Units/ML 3ML Syringe SC SCH (07:30)
[2024-07-26] MEDS ORDERED: Enoxaparin 40 MG/0.4 ML SYR SC SCH (09:00)
[2024-07-26] MEDS ORDERED: Miconazole Nitrate 2% 85 GM PWD TOP SCH (09:00)
[2024-07-26] MEDS ORDERED: Furosemide 10 MG/ML 4ML Vial IV SCH (09:00)
[2024-07-26] MEDS ORDERED: Apixaban 5 MG Tab PO SCH (09:00)
--- NOTE | 2024-07-26 11:02 | NUR ---
Upon receiving a referral for spiritual care, I visited the patient. She is sitting on the EOB and alert. She is unclear on why she is in the hospital and tells me that she is hoping to take a trip around the world and go to all the places she has lived and was stationed in the [employer]. She tells me about her [facility]. I provided therapeutic listening and prayer. Patient responded well ans showed signs of greater peace.
[2024-07-26 11:14] VITALS: BP 106/58
[2024-07-26] MEDS ORDERED: Ipratropium/Albuterol SulF 2.5-0.5MG/3 ML Amp INH SCH (11:40)
[2024-07-26] MEDS ORDERED: Albuterol 2.5 MG/3 ML VIAL INH PRN (11:40)
[2024-07-26] MEDS ORDERED: Azithromycin 500 MG in NS 250 ML IV SCH (12:00)
[2024-07-26] MEDS ORDERED: Azithromycin 250 MG Tab PO SCH (13:45)
[2024-07-26] MEDS ORDERED: MethylPREDNISolone Sod Succ 40 MG VIAL IV SCH (16:00)
[2024-07-26 17:52] VITALS: BP 142/69
--- NOTE | 2024-07-26 18:21 | NUR ---
SHIFT SUMMARY: ASSUMED CARE AT 0700. A&OX3-4 WITH INTERMITTENT CONFUSION, HX OF DEMENTIA. PT REPORTS DOUBLE VISION AND REPORTS HAVING DOUBLE VISION FOR A MONTH. EXPIRATORY WHEEZING BILATERAL UPPER LOBES AND DIMINISHED BASES. 4L NC. PT HAS MOIST NONPRODUCATIVE COUGH. AFIB 80'S-100'S. GENERALIZED WEAKNESS BILATERAL LOWER EXTREMITIES. ONE PERSON ASSIST TO BEDSIDE COMMODE/CHAIR. PT FORGETFUL TO CALL FOR HELP BEFORE GETTING UP AND EDUCATED TO USE CALL LIGHT BEFORE GETTING UP. BED AND CHAIR ALARM IN USE. PT RESTATED EDUCATION. REDDENED AREA IN LOWER ABDOMINAL FOLDS. APPLIED MICONAZOLE PER EMAR. INFILITRATED IV IN RIGHT FOREARM. NO REDNESS OR BLANCHING. SLIGHT EDEMA IN AREA. REMOVED IV AND APPLIED WARM COMPRESS. POWERGLIDE INSERTED FOR IV ACCESS. BLOOD SUGAR MANAGED WITH HUMALOG PER EMAR. WILL CONTINUE TO MONITOR AND TREAT UNTIL REPORT GIVEN TO [facility] NURSE.
[2024-07-26 20:28] VITALS: BP 126/62
[2024-07-26] MEDS ORDERED: GuaiFENesin 600 MG TabCR PO SCH (21:00)
[2024-07-26] MEDS ORDERED: TraZODone HCl 50 MG Tab PO ONE (22:00)
[2024-07-27 00:13] VITALS: BP 115/69
[2024-07-27] MEDS ORDERED: COENZYME Q-1030 MG PO (02:59)
[2024-07-27] MEDS ORDERED: FLUTICASONE-VI1 EACH INH (03:03)
[2024-07-27] MEDS ORDERED: GLIP5ER PO (03:08)
[2024-07-27] MEDS ORDERED: PANT40 PO (03:13)
[2024-07-27] MEDS ORDERED: TORSE20 PO (03:14)
[2024-07-27] MEDS ORDERED: Vitamin D1000 UNI1 PO (03:15)
[2024-07-27 03:34] VITALS: BP 122/84
--- NOTE | 2024-07-27 07:37 | NUR ---
SHIFT SUMMARY: PT IS A&O TO SELF AND PLACE. VSS ON 4L NC, SHE CHOSE NOT TO WEAR BIPAP THIS SHIFT. AFIB 80'S-110'S. DENIES PAIN. PT AWAKE MOST OF THIS SHIFT, VERY RESTLESS AND FRUSTRATED WITH NOT BEING ABLE TO REMEMBER THINGS. TOLERATING A CONS CARB DIET. VOIDING ADEQUATE AMOUNTS OF YELLOW URINE, X1 SOFT, BROWN BM X1 THIS SHIFT. X1 ASSIST WITH FWW TO BSC. BED IN LOWEST POSITION, CALL LIGHT WITHIN REACH. BED OR CHAIR ALARM SET FOR PT'S SAFETY.
[2024-07-27] MEDS ORDERED: Insulin Human Lispro 100 Units/ML 3ML Syringe SC SCH ×3 (07:40→12:30)
[2024-07-27] MEDS ORDERED: Insulin Glargine-Yfgn 100 Unit/mL 3 ML SYR SC ONE (07:40)
[2024-07-27 08:05] VITALS: BP 138/119
[2024-07-27 09:33] LABS: Bun/Creatinine Ratio 22.6 (12.0-20.0); Creatinine, Blood 1.24 mg/dL (0.40-1.00); Magnesium, Blood 2.2 mg/dL (1.6-2.4); Phosphorus, Blood 3.9 mg/dL (2.5-4.9)
[2024-07-27 11:44] VITALS: BP 140/93
[2024-07-27] MEDS ORDERED: Empagliflozin 10 MG TAB PO SCH (13:00)
[2024-07-27] MEDS ORDERED: Spironolactone 25 MG Tab PO SCH (13:00)
[2024-07-27] MEDS ORDERED: Metoprolol Succinate 25 MG TABCR PO SCH (13:00)
[2024-07-27 15:25] VITALS: BP 140/78
--- NOTE | 2024-07-27 18:06 | NUR ---
SHIFT SUMMARY: ASSUMED CARE AT 0700. A/OX2-3. REMAINS ON 4L NC. NO ACUTE CHANGES. INCREASED BLOOD SUGARS TODAY. ADDITIONAL INSULIN ORDER PER EMAR. PT FORGETFUL AND EDUCATED TO USE CALL LIGHT BEFORE GETTING UP. BED AND CHAIR ALARM. WILL CONTINUE TO MONTIOR AND TREAT UNTIL REPORT GIVEN TO NOC NURSE.
[2024-07-27 19:47] VITALS: BP 140/76
[2024-07-27] MEDS ORDERED: Mirtazapine 15 MG Tab PO SCH (21:00)
[2024-07-27] MEDS ORDERED: MethylPREDNISolone Sod Succ 40 MG VIAL IV SCH (21:00)
[2024-07-27] MEDS ORDERED: Gabapentin 300 MG Cap PO SCH (21:00)
[2024-07-27] MEDS ORDERED: HyDROXyzine HCl 25 MG Tab PO SCH (21:00)
[2024-07-28 03:05] VITALS: BP 106/80
--- NOTE | 2024-07-28 06:38 | NUR ---
SHIFT SUMMARY: PT IS A&O TO SELF AND PLACE. VSS ON 4L NC. AFIB 80'S-1O0'S. DENIES PAIN. HAS A HACKING COUGH, WITH MINIMAL PRODUCTION. NO ACUTE EVENTS THIS SHIFT. SOME OF HER HOME MEDICATIONS GOT RESTARTED, SO PT SLEPT SOME THIS SHIFT. TOLERATING A CONS CARB DIET. X1 ASSIST WITH FWW TO BSC OR CHAIR. PT IS CONTINENT/INCONTINENT OF URINE, PULL-UP IN PLACE AND CHANGED NEEDED. VOIDING ADEQUATE AMOUNTS OF PALE YELLOW URINE, NO BM THIS SHIFT. PT JUST KEPT TELLING THIS RN THAT SHE JUST WANTS TO . BED IN LOWEST POSITION, CALL LIGHT WITHIN REACH. BED OR CHAIR ALARM SET FOR PT'S SAFETY.
[2024-07-28] MEDS ORDERED: Bisacodyl 10 MG Supp PR PRN (08:20)
[2024-07-28] MEDS ORDERED: Acetaminophen 325 MG TABLET PO PRN (08:25)
[2024-07-28] MEDS ORDERED: HYDROcodone 5-APAP 325 TAB PO PRN (08:25)
[2024-07-28] MEDS ORDERED: Loperamide HCl 2 MG Cap PO PRN (08:30)
[2024-07-28] MEDS ORDERED: Diphenoxylat/Atrop 2.5 / 0.025MG 1 Tab PO PRN (08:30)
[2024-07-28] MEDS ORDERED: Mometasone/Formoterol MDI 100/5 mcg 13 GM INH SCH (08:35)
[2024-07-28] MEDS ORDERED: Multivitamins 1 Tab PO SCH (09:00)
[2024-07-28] MEDS ORDERED: Gabapentin 300 MG Cap PO SCH ×2 (09:00)
[2024-07-28] MEDS ORDERED: Cholecalciferol 1000 Unit Tablet (=25MCG) PO SCH (09:00)
[2024-07-28] MEDS ORDERED: Amiodarone HCl 200 MG Tab PO SCH (09:00)
[2024-07-28 09:35] VITALS: BP 126/79
[2024-07-28 10:50] LABS: Bun/Creatinine Ratio 30.3 (12.0-20.0); Creatinine, Blood 1.32 mg/dL (0.40-1.00); Potassium, Blood 4.1 mmol/L (3.5-5.5)
[2024-07-28 12:10] VITALS: BP 137/92
[2024-07-28 16:17] VITALS: BP 127/74
--- NOTE | 2024-07-28 18:44 | NUR ---
SHIFT SUMMARY A&Ox2-3, COMMUNICATES NEEDS APPROPRIATELY THOUGH DOES NOT USE CALL LIGHT TO INITIATE NEEDS, BED ALARM AND CHAIR ALARM ON. 1 ASSIST TO BSC FOR VOIDS. BP STABLE, DENIES CP/PRESSURE. SpO2> 92% RA-1L VIA NC, DENIES SOB. DENIES PAIN. PLEASANT AND EASY TO REDIRECT. NO OTHER EVENTS, WILL REPORT TO ONCOMING RN.
[2024-07-28 19:55] VITALS: BP 111/66
[2024-07-28] MEDS ORDERED: Fluticasone 0.05% Nasal Spray SCH (21:00)
[2024-07-28] MEDS ORDERED: Montelukast Sodium 10 MG Tab PO SCH (21:00)
[2024-07-28] MEDS ORDERED: MethylPREDNISolone Sod Succ 40 MG VIAL IV SCH (21:00)
[2024-07-29 00:44] VITALS: BP 106/91; BP 130/81
[2024-07-29 00:54] VITALS: BP 106/91
[2024-07-29 03:54] VITALS: BP 119/76
[2024-07-29 04:14] LABS: BASOPHILS ABSOLUTE AUTO 0.01 K/mm3 (0.00-0.23); BASOPHILS PERCENT AUTO 0 % (0-2); EOSINOPHILS PERCENT AUTO 0 % (0-6); Hematocrit 37.7 % (33.0-51.0); Hemoglobin 12.4 g/dL (11.5-16.0); IMMATURE GRAN ABSOLUTE AUTO 0.11 K/mm3 (0.00-0.10); IMMATURE GRAN PERCENT AUTO 1 % (0-1); LYMPHOCYTES ABSOLUTE AUTO 0.74 K/mm3 (0.84-5.20); LYMPHOCYTES PERCENT AUTO 5 % (21-46); MONOCYTES ABSOLUTE AUTO 0.24 K/mm3 (0.16-1.47); MONOCYTES PERCENT AUTO 2 % (4-13); Mean Corpuscular HGB 28.8 pg (26.0-34.0); Mean Corpuscular HGB Conc 32.9 g/dL (31.5-36.5); Mean Corpuscular Volume 88 fL (80-100); Mean Platelet Volume 10.2 fL (9.1-12.4); NEUTROPHILS ABSOLUTE AUTO 14.54 K/mm3 (1.96-9.15); NEUTROPHILS PERCENT AUTO 93 % (41-73); Platelet Count 363 K/mm3 (150-400); RDW Coefficient Variation 13.4 % (11.7-14.2); White Blood Cell Count 15.64 K/mm3 (4.00-11.30)
[2024-07-29 04:33] LABS: Albumin, Blood 3.3 g/dL (3.4-5.0); Albumin/Globulin Ratio 0.8 (0.8-1.8); Bilirubin, Total 0.5 mg/dL (0.1-1.0); Bun/Creatinine Ratio 36.5 (12.0-20.0); Calcium, Blood 9.2 mg/dL (8.5-10.1); Creatinine, Blood 1.48 mg/dL (0.40-1.00); Globulin, Blood 4.2 g/dL (2.2-4.0); Potassium, Blood 4.2 mmol/L (3.5-5.5); Total Protein, Blood 7.5 g/dL (6.4-8.2)
[2024-07-29] MEDS ORDERED: Pantoprazole Sodium 40 MG Tab PO SCH (06:00)
--- NOTE | 2024-07-29 06:43 | NUR ---
SHIFT SUMMARY PT ALERT, ORIENTED TO NAME/, PLACE, SITUATION. PT CONFUSED AT TIMES, HX OF DEMENTIA, SHE IS COOPERATIVE TO CARE. HR IN THE 100'S, AFIB. SHE DENIES CP/PRESSURE, NUMB/TINGLING, SBP STABLE. O2 >92% ON 1L VIA NC. SHE DENIES SOB AT THIS TIME. PT UP TO RECLINER MOST OF NIGHT. NO ACUTE CHANGES T/O NIGHT. PT RESTING IN RECLINER AT THIS TIME. SHE DENIES QUESTIONS/CONCERNS. WILL MONITOR PT AND REPORT TO ONCOMING RN.
[2024-07-29 07:40] VITALS: BP 127/82
[2024-07-29] MEDS ORDERED: Metoprolol Succinate 25 MG TABCR PO SCH (09:00)
[2024-07-29] MEDS ORDERED: Furosemide 10 MG/ML 4ML Vial IV SCH (09:00)
[2024-07-29] MEDS ORDERED: Furosemide 40 MG Tab PO SCH (09:00)
[2024-07-29 15:07] VITALS: BP 118/95
--- NOTE | 2024-07-29 17:34 | NUR ---
SHIFT SUMMARY A&Ox3, COMMUNICATES NEEDS APPROPRIATELY THOUGH DOES NOT USE CALL LIGHT TO INITIATE NEEDS, BED ALARM AND CHAIR ALARM ON. 1 ASSIST TO BSC FOR VOIDS. BP STABLE, AFIB 90-100's, DENIES CP/PRESSURE. SpO2> 92% RA, DENIES SOB. DENIES PAIN. PLEASANT, EASY TO REDIRECT, AND COOPERATIVE. NO OTHER EVENTS, WILL REPORT TO ONCOMING RN.
[2024-07-29 20:00] VITALS: BP 120/87
[2024-07-29] MEDS ORDERED: MethylPREDNISolone Sod Succ 40 MG VIAL IV SCH (21:00)
[2024-07-30] VITALS: BP 121/71
--- NOTE | 2024-07-30 02:52 | NUR ---
SHIFT SUMMARY PT HAS TOLERATED SHIFT WELL TO THIS POINT. PT STARTED SHIFT REQUESTING TO MOVE TO BED. UPON MOVING TO BED, PT STATED THAT NOT BEING ALLOWED TO SIT AT EDGE OF BED WOULD EXASPERATE ANXIETY AND REQUESTED TO MOVE TO CHAIR. PT MOVED BACK TO CHAIR AND ALARM WAS SET. PT HAS BEEN SLEEPING COMFORTABLY RECLINED IN CHAIR FOR DURATION OF SHFT TO THIS POINT WITH A FEW INTERUPTIONS FOR VITALS AND TO SIT ON BEDSIDE COMMODE. WILL CONTINUE TO MONITOR UNTIL REPORT PASSED TO NURSE RECIEVING PT.
[2024-07-30 05:29] LABS: BASOPHILS ABSOLUTE AUTO 0.02 K/mm3 (0.00-0.23); BASOPHILS PERCENT AUTO 0 % (0-2); EOSINOPHILS PERCENT AUTO 0 % (0-6); Hemoglobin 12.5 g/dL (11.5-16.0); IMMATURE GRAN ABSOLUTE AUTO 0.19 K/mm3 (0.00-0.10); IMMATURE GRAN PERCENT AUTO 1 % (0-1); LYMPHOCYTES ABSOLUTE AUTO 0.94 K/mm3 (0.84-5.20); LYMPHOCYTES PERCENT AUTO 7 % (21-46); MONOCYTES ABSOLUTE AUTO 0.33 K/mm3 (0.16-1.47); MONOCYTES PERCENT AUTO 2 % (4-13); Mean Corpuscular HGB 28.5 pg (26.0-34.0); Mean Corpuscular HGB Conc 32.9 g/dL (31.5-36.5); Mean Corpuscular Volume 87 fL (80-100); Mean Platelet Volume 11.2 fL (9.1-12.4); NEUTROPHILS PERCENT AUTO 89 % (41-73); Platelet Count 228 K/mm3 (150-400); RDW Coefficient Variation 13.2 % (11.7-14.2); RDW Standard Deviation 41.7 fL (35.1-46.3); Red Blood Cell Count 4.38 M/mm3 (3.80-5.20); White Blood Cell Count 13.68 K/mm3 (4.00-11.30)
--- NOTE | 2024-07-30 05:40 | NUR ---
Took over pt care at approximately 0300, pt slept majority of remainder of shift, no complaints of pain, VSS, pleasant and compliant with care. No concerns at this time, redirectable, fall precautions in place.
[2024-07-30 06:11] LABS: Albumin/Globulin Ratio 0.7 (0.8-1.8); Bilirubin, Total 0.6 mg/dL (0.1-1.0); Creatinine, Blood 1.58 mg/dL (0.40-1.00); Globulin, Blood 4.3 g/dL (2.2-4.0); Potassium, Blood 5.5 mmol/L (3.5-5.5); Total Protein, Blood 7.3 g/dL (6.4-8.2)
[2024-07-30 07:30] VITALS: BP 125/83
[2024-07-30] MEDS ORDERED: Furosemide 40 MG Tab PO SCH (09:00)
[2024-07-30 11:22] LABS: Bun/Creatinine Ratio 38.7 (12.0-20.0); Creatinine, Blood 1.5 mg/dL (0.40-1.00); Potassium, Blood 4.8 mmol/L (3.5-5.5)
[2024-07-30] MEDS ORDERED: Insulin Glargine-Yfgn 100 Unit/mL 3 ML SYR SC SCH (11:40)
--- NOTE | 2024-07-30 15:40 | NUR ---
TRANSFER: REPORT CALLED TO MED RN. PT TRANSFERRED TO ROOM 346 VIA WHEELCHAIR. ALL BELONGINGS WITH PT.
[2024-07-30 15:44] VITALS: BP 130/74
--- NOTE | 2024-07-30 15:47 | NUR ---
MS FIELDS TRANSFERED FROM PCU TO MEDICAL UNIT VIA WHEELCHAIR. ORIENTATED TO SELF, [facility], JULY 2025, CONFUSED ABOUT WHY SHE IS HERE IN HOSPITAL. SHE DENIES PAIN EXCEPT SOME TENDERNESS TO HER TOE. MOIST NON PRODUCTIVE COUGH. ON ROOM AIR, PUT ON CONTINUOUS PULSE OX. ON TELEMETRY IN AFIB. BED ALARM ON.
--- NOTE | 2024-07-30 18:49 | NUR ---
RN NOTE UP IN CHAIR FOR SUPPER. PLEASANTLY CONFUSED CONVERSATION. NO C/O SOB. 94% ON CONTINUOUS PULSE OX ON ROOM AIR. CHAIR ALARM IN USE.
[2024-07-30 19:15] VITALS: BP 118/93
[2024-07-31 01:37] VITALS: BP 143/82
--- NOTE | 2024-07-31 05:22 | NUR ---
SHIFT SUMMARY NOC PT A/O X 2-3. PLEASANT AND COOPERATIVE WITH CARE, BUT ANXIOUS. VSS. HS CBG 105 CNI. PT HAS POWERGLIDE IN ELIZABETH. ON TELE AFIB IN 'S. PT ON RA SPO2 >92% ON CONTINOUS PULSE OXIMETRY. PT POSSIBLE DISCHARGE BACK TO [facility] TODAY IF BLOOD GLUCOSE REMAINS STABLE. PT CURRENTLY RESTING WITH BED ALARM ON, BED IN LOWEST POSITION, AND CALL LIGHT WITHIN REACH.
[2024-07-31 05:29] VITALS: BP 124/76
[2024-07-31] MEDS ORDERED: OLANZapine 10 MG Vial IM ONE (05:50)
[2024-07-31 07:38] VITALS: BP 126/82
[2024-07-31] MEDS ORDERED: JARDIANCE10 MG PO (11:05)
[2024-07-31] MEDS ORDERED: ELIQUIS5 M2 PO (11:05)
[2024-07-31] MEDS ORDERED: GUAI600T33 PO (11:06)
[2024-07-31] MEDS ORDERED: BASAGLAR K100 UNIT/6 SC (11:07)
[2024-07-31] MEDS ORDERED: SPIR25 PO (11:09)
[2024-07-31] MEDS ORDERED: HUMALOG KW100 UNIT/1 SC (11:09)
--- NOTE | 2024-07-31 12:44 | NUR ---
DISCHARGE PT AOX4, COOPERATIVE, ABLE TO MAKE NEEDS KNOWN. PT TRANSFERRED TO WITHOUT COMPLICATION. ON ROOM AIR. DISCHARGE PACKET WENT WITH TRANSPORT. PT GOING BACK TO [facility]. THIS RN CALLED [facility] AND TALKED TO "CHRISTOPHER" TO INFORM THEM THE PT HAS LEFT THE HOSPITAL.
[2024-08-01] MEDS ORDERED: Insulin Glargine-Yfgn 100 Unit/mL 3 ML SYR SC SCH (09:00)
== END 2024-07-31 12:38 | disposition home health service (06) | DRG 291 ==
LOC: ER 23:02 → ERHOLD 23:03 → PCU 23:03 → MEDS 07-30 15:34
PROVIDERS: Hospitalist; Internal Medicine; Student in an Organized Health Care Education/Training Program; ADMIT Student in an Organized Health Care Education/Training Program
PROC: 5A09357 Assistance with Respiratory Ventilation, Less than 24 Consecutive Hours, Continuous Positive Airway Pressure (ICD-10-PCS; principal; 2024-07-25)
DX: I13.0 Hypertensive heart and chronic kidney disease with heart failure and stage 1 through stage 4 chronic kidney disease, or unspecified chronic kidney disease (principal); I50.31 Acute diastolic (congestive) heart failure; J96.01 Acute respiratory failure with hypoxia; J44.1 Chronic obstructive pulmonary disease with (acute) exacerbation; I48.0 Paroxysmal atrial fibrillation; I27.20 Pulmonary hypertension, unspecified; E11.65 Type 2 diabetes mellitus with hyperglycemia; E11.22 Type 2 diabetes mellitus with diabetic chronic kidney disease; G47.33 Obstructive sleep apnea (adult) (pediatric); F03.A0 Unspecified dementia, mild, without behavioral disturbance, psychotic disturbance, mood disturbance, and anxiety; E87.5 Hyperkalemia; N18.32 Chronic kidney disease, stage 3b; Z96.651 Presence of right artificial knee joint; E78.5 Hyperlipidemia, unspecified; I35.0 Nonrheumatic aortic (valve) stenosis; I25.10 Atherosclerotic heart disease of native coronary artery without angina pectoris; Z91.048 Other nonmedicinal substance allergy status; Z88.8 Allergy status to other drugs, medicaments and biological substances; Z79.891 Long term (current) use of opiate analgesic; Z79.899 Other long term (current) drug therapy; Z79.51 Long term (current) use of inhaled steroids; Z89.511 Acquired absence of right leg below knee; Z90.49 Acquired absence of other specified parts of digestive tract; Z90.710 Acquired absence of both cervix and uterus; Z98.890 Other specified postprocedural states; Z98.1 Arthrodesis status; Z89.512 Acquired absence of left leg below knee; Z85.42 Personal history of malignant neoplasm of other parts of uterus; Z90.722 Acquired absence of ovaries, bilateral; Z90.89 Acquired absence of other organs; Z95.2 Presence of prosthetic heart valve; Z79.84 Long term (current) use of oral hypoglycemic drugs; Z79.4 Long term (current) use of insulin; Z28.21 Immunization not carried out because of patient refusal
CPT/HCPCS: 0241U; 36415; 51701; 71045; 80048; 80053; 81001; 82803; 82947; 83735; 83880; 84100; 84145; 84484; 85025; 93005; 93010; 93306; 93971; 94640; 94644; 94660; 94664; 94760; 94762; 96365; 96375; 96376; 97116; 97116-CQ; 97129; 97130; 97162; 97165; 97530; 99285-25; A9270; C1751; G0378; J0456; J0696; J1815; J1940; J2919; J7050

== ENCOUNTER 2024-08-02 09:57 | Emergency (ER) | payer MEDICARE, OTHER ==
[~2024-08-02] VITALS: Ht 162.6 cm; Wt 74.4 kg
[~2024-08-02 09:57] MED LIST changes: +BASAGLAR K100 UNIT/6 SC; +ELIQUIS5 M2 PO; +FLUTICASONE-VI1 EACH INH; +GLIP5ER PO; +GUAI600T33 PO; +HUMALOG KW100 UNIT/1 SC; +JARDIANCE10 MG PO; +TORSE20 PO
[2024-08-02 11:07] LABS: BASOPHILS PERCENT AUTO 1 % (0-2); EOSINOPHILS ABSOLUTE AUTO 0.35 K/mm3 (0.00-0.68); EOSINOPHILS PERCENT AUTO 2 % (0-6); Hematocrit 38.6 % (33.0-51.0); Hemoglobin 12.6 g/dL (11.5-16.0); IMMATURE GRAN ABSOLUTE AUTO 0.66 K/mm3 (0.00-0.10); IMMATURE GRAN PERCENT AUTO 4 % (0-1); LYMPHOCYTES ABSOLUTE AUTO 3.75 K/mm3 (0.84-5.20); LYMPHOCYTES PERCENT AUTO 20 % (21-46); MONOCYTES ABSOLUTE AUTO 1.55 K/mm3 (0.16-1.47); MONOCYTES PERCENT AUTO 8 % (4-13); Mean Corpuscular HGB 28.7 pg (26.0-34.0); Mean Corpuscular HGB Conc 32.6 g/dL (31.5-36.5); Mean Corpuscular Volume 88 fL (80-100); Mean Platelet Volume 10.5 fL (9.1-12.4); NEUTROPHILS ABSOLUTE AUTO 11.94 K/mm3 (1.96-9.15); NEUTROPHILS PERCENT AUTO 65 % (41-73); Platelet Count 320 K/mm3 (150-400); RDW Coefficient Variation 13.1 % (11.7-14.2); RDW Standard Deviation 41.8 fL (35.1-46.3); Red Blood Cell Count 4.39 M/mm3 (3.80-5.20); White Blood Cell Count 18.35 K/mm3 (4.00-11.30)
[2024-08-02 11:29] LABS: Albumin, Blood 2.9 g/dL (3.4-5.0); Albumin/Globulin Ratio 0.8 (0.8-1.8); Bilirubin, Total 0.3 mg/dL (0.1-1.0); Bun/Creatinine Ratio 28.2 (12.0-20.0); Calcium, Blood 8.7 mg/dL (8.5-10.1); Creatinine, Blood 1.63 mg/dL (0.40-1.00); Globulin, Blood 3.8 g/dL (2.2-4.0); Potassium, Blood 3.4 mmol/L (3.5-5.5); Total Protein, Blood 6.7 g/dL (6.4-8.2)
[2024-08-02 12:45] VITALS: BP 110/78
== END 2024-08-02 13:00 | disposition home or self-care (01) ==
LOC: ER 09:57
PROVIDERS: Physician Assistant
DX: R55 Syncope and collapse (principal); D72.829 Elevated white blood cell count, unspecified; I12.9 Hypertensive chronic kidney disease with stage 1 through stage 4 chronic kidney disease, or unspecified chronic kidney disease; E11.22 Type 2 diabetes mellitus with diabetic chronic kidney disease; N18.30 Chronic kidney disease, stage 3 unspecified; E78.5 Hyperlipidemia, unspecified; J44.89 Other specified chronic obstructive pulmonary disease; I25.10 Atherosclerotic heart disease of native coronary artery without angina pectoris; I48.0 Paroxysmal atrial fibrillation; Z88.8 Allergy status to other drugs, medicaments and biological substances; Z79.4 Long term (current) use of insulin; Z79.01 Long term (current) use of anticoagulants; Z79.899 Other long term (current) drug therapy
CPT/HCPCS: 71046; 80053; 83880; 85025; 93005; 93010; 99284-25

== ENCOUNTER → 2024-10-15 | Outpatient (CLI) | payer MEDICARE, OTHER ==
[2024-10-15 17:20] LABS: Appearance, Urine Hazy (Clear); Bilirubin, Urine Neg (Neg); Blood, Urine Neg (Neg); Glucose Qualitative, Urine 4+ (Neg); Ketones, Urine Neg (Neg); Leukocyte Esterase, Urine 1+ (Neg); Nitrite, Urine Neg (Neg); Protein, Urine Neg (Neg); Specific Gravity, Urine 1.015 (1.003-1.022); Urobilinogen, Urine NORM (Normal)
[2024-10-15 17:54] LABS: Color, Urine Pale Yellow (P-Yellow)
[2024-10-15 17:55] LABS: Bacteria Few /hpf; Red Blood Cells, Urine 0-2 /hpf (0-2); Squamous Epithelial Cells Rare /hpf (Few)
== END ==
LOC: LAB SHORT 16:43 → LAB 16:43
PROVIDERS: Family Medicine
DX: N39.0 Urinary tract infection, site not specified (principal)
CPT/HCPCS: 81001; 87086

== ENCOUNTER 2024-11-07 11:18 | Inpatient (IN) | payer MEDICARE, OTHER ==
[~2024-11-07] VITALS: Ht 165.1 cm; Wt 107.3 kg
[~2024-11-07 11:18] MED LIST changes: +BASAGLAR K100 UNIT/1 SC; -BASAGLAR K100 UNIT/6 SC; -GLIP5ER PO; +Glipizide ER5 MG PO
[2024-11-07] MEDS ORDERED: Ipratropium/Albuterol SulF 2.5-0.5MG/3 ML Amp INH ONE (11:40)
[2024-11-07] MEDS ORDERED: Albuterol 2.5 MG/3 ML VIAL INH SCH (11:40)
[2024-11-07 11:50] LABS: BASOPHILS ABSOLUTE AUTO 0.07 K/mm3 (0.00-0.23); BASOPHILS PERCENT AUTO 0 % (0-2); EOSINOPHILS ABSOLUTE AUTO 0.06 K/mm3 (0.00-0.68); EOSINOPHILS PERCENT AUTO 0 % (0-6); Hematocrit 39.3 % (33.0-51.0); Hemoglobin 12.2 g/dL (11.5-16.0); IMMATURE GRAN ABSOLUTE AUTO 0.17 K/mm3 (0.00-0.10); IMMATURE GRAN PERCENT AUTO 1 % (0-1); LYMPHOCYTES ABSOLUTE AUTO 1.05 K/mm3 (0.84-5.20); LYMPHOCYTES PERCENT AUTO 6 % (21-46); MONOCYTES ABSOLUTE AUTO 1.93 K/mm3 (0.16-1.47); MONOCYTES PERCENT AUTO 11 % (4-13); Mean Corpuscular HGB Conc 31.0 g/dL (31.5-36.5); Mean Corpuscular Volume 93 fL (80-100); NEUTROPHILS ABSOLUTE AUTO 14.91 K/mm3 (1.96-9.15); NEUTROPHILS PERCENT AUTO 82 % (41-73); NRBC ABSOLUTE 0.00 K/mm3 (0.00-0.02); NRBC Auto 0.0 /100 WBC (0.0-0.2); Platelet Count 219 K/mm3 (150-400); RDW Coefficient Variation 13.5 % (11.7-14.2); RDW Standard Deviation 45.1 fL (35.1-46.3)
[2024-11-07 12:04] LABS: Alanine Aminotransfer (ALT/SGP 36.0 U/L (12-78); Albumin, Blood 3.0 g/dL (3.4-5.0); Albumin/Globulin Ratio 0.7 (0.8-1.8); Anion Gap 12.0 mmol/L (3-11); Aspartate Aminotrans (AST/SGOT 35.0 U/L (12-37); Bilirubin, Total 0.9 mg/dL (0.1-1.0); Blood Urea Nitrogen 27.0 mg/dL (8-24); CO2, Blood 22.0 mmol/L (21-32); Calcium, Blood 8.5 mg/dL (8.5-10.1); Chloride, Blood 108.0 mmol/L (98-108); Creatinine, Blood 1.76 mg/dL (0.40-1.00); Globulin, Blood 4.2 g/dL (2.2-4.0); Glucose, Blood 233.0 mg/dL (70-99); Magnesium, Blood 2.1 mg/dL (1.6-2.4); Potassium, Blood 4.2 mmol/L (3.5-5.5); Sodium, Blood 138.0 mmol/L (136-145); Total Protein, Blood 7.2 g/dL (6.4-8.2)
[2024-11-07] MEDS ORDERED: CefTRIAXone Sodium 1,000 MG in NS 50 ML IV ONE (12:05)
[2024-11-07 12:29] LABS: Influenza A, PCR NEGATIVE (NEGATIVE); Influenza B, PCR NEGATIVE (NEGATIVE); Resp Syncytial Virus, PCR NEGATIVE (NEGATIVE); SARS-Cov-2 (COVID-19) PCR, MMC NEGATIVE (NEGATIVE)
[2024-11-07 15:05] VITALS: BP 98/63
--- NOTE | 2024-11-07 15:58 | NUR ---
PATIENT ARRIVED TO FLOOR VIA GURNEY @ 1450. SLIDE TRANSFERRED TO BED. A&Ox4. SOB c EXERTION WHEN ROLLING. SPO2 93 c 3LPM/NC (RA @ BASELINE). NOTED TO HAVE YEAST RASH BENEATH BILATERAL BREASTS AND PANNUS. PUREWICK IN PLACE SECONDARY TO IMPAIRED MOBILITY D/T BREATHING AND URINARY INCONTINENCE. ORDER FOR MICONAZOLE PLACED PER PROTOCOL. TELE AFIB @ 72. HEART SOUNDS DISTANT AND IRREGULAR. COARSE CRACKLES T/O.
[2024-11-07] MEDS ORDERED: Albuterol 2.5 MG/3 ML VIAL INH PRN (17:45)
[2024-11-07] MEDS ORDERED: Formoterol/Mometasone MDI 5/100 mcg 13 GM INH SCH (17:45)
[2024-11-07 18:05] VITALS: BP 121/74
[2024-11-07 18:12] LABS: pH Blood Venous 7.29 (7.34-7.37)
[2024-11-07] MEDS ORDERED: ALUM-MAG HYDROX30 M1 PO (20:45)
[2024-11-07] MEDS ORDERED: Tessalon200 MG PO (20:46)
[2024-11-07] MEDS ORDERED: HYDR1TAB94 PO (20:50)
[2024-11-07] MEDS ORDERED: LORA.5 PO (20:52)
[2024-11-07] MEDS ORDERED: NOVOLOG FL100 UNIT/3 SC (20:55)
[2024-11-07] MEDS ORDERED: NYAMYC15 G1 TOP (20:56)
[2024-11-07] MEDS ORDERED: NYSTATIN15 GM TOP (20:57)
[2024-11-07] MEDS ORDERED: Lactobacil 2-S.Thermo-Bifido 1 1 Cap PO SCH (21:00)
[2024-11-07] MEDS ORDERED: Miconazole Nitrate 2% 85 GM PWD TOP SCH (21:00)
[2024-11-07 21:01] VITALS: BP 112/55
--- NOTE | 2024-11-07 21:06 | NUR ---
END OF SHIFT SUMMARY: A&Ox4. PLEASANT AND COOPERATIVE WITH CARE. CALLS APPROPRIATELY AND IS ABLE TO ADVOCATE NEEDS EFFECTIVELY. INCONTINENT OF BOWEL AND BLADDER; LBM 11/06. EXCORIATIONS TO SYDNI AREA AND GROIN. PUREWICK IN PLACE SECONDARY TO INCONTINENCE AND SYDNI EXCORIATIONS. AMBULATES c FWW @ BASELINE; DYSPNIC AND TACHYPNIC c ANY EXERTION AND HAS STAYED IN BED THUS FAR. MEDS WHOLE c FLUIDS. NO C/O PAIN OR DISCOMFORT. TELEMETRY AFIB. BED IN LOWEST POSITION, CALL LIGHT WITHIN REACH, ALL NEEDS MET. REPORT TO ONCOMING NURSE.
[2024-11-07] MEDS ORDERED: Insulin Regular 100 UNIT/ML 10ML Vial SC ONE (21:30)
[2024-11-07 22:00] LABS: pH Blood Venous 7.33 (7.34-7.37)
[2024-11-07] MEDS ORDERED: Insulin Glargine-Yfgn 100 Unit/mL 3 ML SYR SC SCH (22:00)
[2024-11-07 23:29] VITALS: BP 108/46
[2024-11-08] VITALS (7 sets, daily range): BP systolic 121–152; BP diastolic 70–112
--- NOTE | 2024-11-08 06:44 | NUR ---
REGISTERED DENTAL HYGIENIST SUMMARY: PT A&O X3-4. MAKES NEEDS KNOWN. PT LIKES TO SIT AT EDGE OF BED AND HAVE BOTH FEET ON FLOOR. PT EXPRESSES ANXIETY ABOUT LYING IN BED FOR LONG PERIODS OF TIME. PT IS ON 3L VIA NC, SATS MAINTAINED ABOVE 92%. CONTINUOUS BIOX IN PLACE. TELE IN PLACE; AFIB 70-80'S. PT HS CBG WAS 445. DR. YIN NOTIFIED. NEW ORDER TO GIVE HUMULIN R 5UNITS SQ NOW AND START HOME MED INSULIN GLARGINE 20U SC Q HS. NO S/S OR C/O HYPO OR HYPERGLYCEMIA. PT HAS PUREWICK IN PLACE DRAINING YELLOW URINE. PT INDEPENDENT WITH BED MOBILITY. BED IN LOWEST POSITION. CARES ONGOING ORDERED. CALL LIGHT IN REACH.
[2024-11-08 06:54] LABS: BASOPHILS ABSOLUTE AUTO 0.02 K/mm3 (0.00-0.23); BASOPHILS PERCENT AUTO 0 % (0-2); EOSINOPHILS ABSOLUTE AUTO 0.00 K/mm3 (0.00-0.68); EOSINOPHILS PERCENT AUTO 0 % (0-6); Hematocrit 38.2 % (33.0-51.0); Hemoglobin 11.6 g/dL (11.5-16.0); IMMATURE GRAN ABSOLUTE AUTO 0.13 K/mm3 (0.00-0.10); IMMATURE GRAN PERCENT AUTO 1 % (0-1); LYMPHOCYTES ABSOLUTE AUTO 0.68 K/mm3 (0.84-5.20); LYMPHOCYTES PERCENT AUTO 4 % (21-46); MONOCYTES ABSOLUTE AUTO 0.59 K/mm3 (0.16-1.47); MONOCYTES PERCENT AUTO 3 % (4-13); Mean Corpuscular HGB Conc 30.4 g/dL (31.5-36.5); Mean Corpuscular Volume 95 fL (80-100); NEUTROPHILS ABSOLUTE AUTO 16.72 K/mm3 (1.96-9.15); NEUTROPHILS PERCENT AUTO 92 % (41-73); NRBC ABSOLUTE 0.00 K/mm3 (0.00-0.02); NRBC Auto 0.0 /100 WBC (0.0-0.2); Platelet Count 206 K/mm3 (150-400); RDW Coefficient Variation 13.2 % (11.7-14.2); RDW Standard Deviation 46.3 fL (35.1-46.3)
[2024-11-08 07:11] LABS: Anion Gap 12.0 mmol/L (3-11); Blood Urea Nitrogen 40.0 mg/dL (8-24); CO2, Blood 24.0 mmol/L (21-32); Calcium, Blood 9.2 mg/dL (8.5-10.1); Chloride, Blood 105.0 mmol/L (98-108); Creatinine, Blood 2.0 mg/dL (0.40-1.00); Glucose, Blood 284.0 mg/dL (70-99); Potassium, Blood 4.7 mmol/L (3.5-5.5); Sodium, Blood 136.0 mmol/L (136-145)
[2024-11-08] MEDS ORDERED: Insulin Regular 100 UNIT/ML 10ML Vial SC SCH (07:30)
[2024-11-08] MEDS ORDERED: Enoxaparin 30 MG/0.3 ML SYR SC SCH (09:00)
[2024-11-08] MEDS ORDERED: Doxycycline Hyclate 100 MG in Dextrose 5% 250 ML IV SCH (09:00)
[2024-11-08] MEDS ORDERED: CefTRIAXone Sodium 1,000 MG in NS 100 ML IV SCH (09:00)
[2024-11-08] MEDS ORDERED: NS 250 ML IV PRN (10:15)
--- NOTE | 2024-11-08 19:54 | NUR ---
SUMARY - PT A/O X3-4, FROGETFUL TO DETAILS. PT CONTINENT OF URINE ALL DAY. AMBULATES TO BATHROOM SBA WITH WALKER. HAD A BM TODAY. LUNGS SOUND CLEAR, WITH SCATTERED FAINT CRACKLES T.O.. PT ON ROOM AIR, BUT BECOMES DYSPNIC WITH ACTIVITY. CONT PULSE OX, RESTING ROOM AIR SATS USUALLY 96%, WITH ACTIFITY CAN COME DOWN TO 88-92% AND PT DYSPNIC, PRN APPLY OXYGEN 2L AND PT RECOVERS AFTER ABOUT 5 MINUTES. TOLERATING FOOD AND FLUIDS. RECEIVING LASIC. BLOOD SUGARS A LITTLE HIGH UPPER 200'S, USING LOW SS INSULIN. WILL DISCUSS WITH TEAM ABOUT INCREASING TO MED SS. SYDNI/GROIN HAS REDNESS, PT SHOWERED AND APPLLIED MICONAZOLE POWDER. REPORTED TO FAY BELLAMY RN
[2024-11-09 01:03] VITALS: BP 149/85
[2024-11-09 03:36] VITALS: BP 139/99
--- NOTE | 2024-11-09 03:54 | NUR ---
KEY PERSON INFORMED THIS NURSE THAT PT C/O INDIGESTION. UPON ASSESSMENT PT SITTING ON TOILET AND NOTED TO BE TACHYPNIC, DYSPNIC AND C/O INDIGESTION. 2L OXYGEN VIA NC. PRN CBG OBTAINED: 215. VSS. TELE IN PLACE: AFIB 107. PT IS A POOR HISTORIAN AND UNABLE TO DESCRIBE THE INDIGESTION. ORIENTED X4. PT HAS HAD INTERMITTENT ANXIETY T/O SHIFT AND PREFERS TO BE UP IN RECLINER TO PUT HER FEET UP /DOWN DESIRED. PT REPORTS THIS HELPS WITH ANXIETY. HOWEVER, PT HAS BEEN OBSERVED SEVERAL TIMES CALLING OUT HELP AND TACHYPNIC / DYSPNIC AND REPORTING NIGHTAMRES TO THIS NURSE. DR. SIMS NOTIFIED. PT HAS HOME MED OF LORAZEPAM 0.5MG PO Q6H PRN AGITATION/ WANDERING. ONE TIME ORDER FOR THIS MEDICATION TO BE ADMINISTERED AND WILL REVIEW CHART. CONTINUE TO MONITOR.
--- NOTE | 2024-11-09 05:10 | NUR ---
HEAD OF TRAINING AND DEVELOPMENT SUMMARY: PT A&O X4, FORGETFUL. INTERMITTENT ANXIETY T/O SHIFT. SEE PREVIOUS NURSES NOTE. PT MEDICATED WITH ONE TIME ORDER OF LORAZEPAM 0.5MG PO; EFFECTIVE. TELE IN PLACE: AFIB 90'S -110'S. 2L OXYGEN VIA NC, CONTINUOUS BIOX IN PLACE. SATS MAINTAINED ABOVE 92%. PT NOTED TO HAVE INCREASED URINARY FREQUENCY T/O SHIFT. DENIES URGENCY AND DYSURIA. PT RESTING IN RECLINER PER PT PREFERENCE / REQUEST. 1 PERSON SBA FWW . CALL LIGHT IN REACH. CARES ONGOING ORDERED.
[2024-11-09 06:20] LABS: BASOPHILS ABSOLUTE AUTO 0.05 K/mm3 (0.00-0.23); BASOPHILS PERCENT AUTO 0 % (0-2); EOSINOPHILS ABSOLUTE AUTO 0.03 K/mm3 (0.00-0.68); EOSINOPHILS PERCENT AUTO 0 % (0-6); Hematocrit 38.0 % (33.0-51.0); Hemoglobin 12.1 g/dL (11.5-16.0); IMMATURE GRAN ABSOLUTE AUTO 0.29 K/mm3 (0.00-0.10); IMMATURE GRAN PERCENT AUTO 1 % (0-1); LYMPHOCYTES ABSOLUTE AUTO 1.69 K/mm3 (0.84-5.20); LYMPHOCYTES PERCENT AUTO 6 % (21-46); MONOCYTES ABSOLUTE AUTO 1.79 K/mm3 (0.16-1.47); MONOCYTES PERCENT AUTO 7 % (4-13); Mean Corpuscular HGB Conc 31.8 g/dL (31.5-36.5); NEUTROPHILS ABSOLUTE AUTO 23.79 K/mm3 (1.96-9.15); NEUTROPHILS PERCENT AUTO 86 % (41-73); NRBC ABSOLUTE 0.00 K/mm3 (0.00-0.02); NRBC Auto 0.0 /100 WBC (0.0-0.2); Platelet Count 289 K/mm3 (150-400); RDW Coefficient Variation 13.4 % (11.7-14.2); RDW Standard Deviation 43.6 fL (35.1-46.3)
--- NOTE | 2024-11-09 06:29 | NUR ---
PT OBSERVED BY THIS NURSE UNDRESSED AND STANDING AT EDGE OF BED HUNCHED OVER. PT RESPIRATIONS DYSPNIC AND TACHYPNIC. PT NOT WEARING SUPPLEMENTAL OXYGEN. PT ASSISTED BACK TO RECLINER AND PROVIDED NASAL CANNUALA AND DRESSED. SATURATION 96-97% 2-3 L/MIN. DENIES ANXIETY. PT STABILIZED AND RESTING IN RECLINER AT THIS TIME. CALL LIGHT IN REACH.
[2024-11-09 06:42] LABS: Mean Corpuscular Volume 88 fL (80-100)
[2024-11-09 06:50] LABS: Anion Gap 11.0 mmol/L (3-11); Blood Urea Nitrogen 52.0 mg/dL (8-24); CO2, Blood 25.0 mmol/L (21-32); Calcium, Blood 9.3 mg/dL (8.5-10.1); Chloride, Blood 103.0 mmol/L (98-108); Creatinine, Blood 2.0 mg/dL (0.40-1.00); Glucose, Blood 164.0 mg/dL (70-99); Potassium, Blood 3.8 mmol/L (3.5-5.5); Sodium, Blood 135.0 mmol/L (136-145)
[2024-11-09 07:25] VITALS: BP 147/86
[2024-11-09 12:12] VITALS: BP 130/72
[2024-11-09] MEDS ORDERED: Polyethylene Glycol 3350 17 gm PO SCH (14:00)
[2024-11-09] MEDS ORDERED: SOAANZ20 M1 PO (14:28)
[2024-11-09 15:31] VITALS: BP 129/84
[2024-11-09] MEDS ORDERED: Piperacillin/Tazobactam Sod 4.5 GM in NS 100 ML IV SCH (17:00)
--- NOTE | 2024-11-09 18:23 | NUR ---
SUMMARY- 1099- [address] GARCIA, INFORMED THAT WBC'S ELEVATED, THAT PT HAD NOT SLEPT ALL NIGHT AND IS HIGHLY ANXIOUS AND MORE CONFUSED. GETTING UP AND DOWN FROM BED TO CHAIR, FOR FEELING UNCOMFORTABLE/TIGHT IN ABD, AFFECTING HER BREATHING WELL. PT NEEDS TO HAVE A BM, WORKING ON BOWEL CARE. PT'R OXYGEN REQUIREMENTS INCREASED, SHE WAS MORE DYSPNIC WITH ACTIVITY, NEEDING UP TO 7L TO KEEP HER ABOVE 92% WITH HR IN 140'S, PT WOULD PANIC AND MOUTH BREATH TACHYPNEA, NEEDS BREATHING COACHING. PT. PT'S LUNGS ARE SCATTERED RHONCHI/DIM BASES. FREQ DRY COUGH. ENC FLUTTER, NOT MUCH PHLEGM COMING OUT. ATTEMPTING TO OBTAIN SPUTUM CULTURE. PT TOLERATING SOLIDS, SMALL APPETITE. DRINKING FLUIDS WITH CUING. VOIDING FREQ CLEAR, DENIES BURNING. EDEMA IN LEGS +2.
[2024-11-09 20:18] VITALS: BP 127/86
[2024-11-10] VITALS (7 sets, daily range): BP systolic 106–156; BP diastolic 61–100
[2024-11-10 06:10] LABS: BASOPHILS ABSOLUTE AUTO 0.04 K/mm3 (0.00-0.23); BASOPHILS PERCENT AUTO 0 % (0-2); EOSINOPHILS ABSOLUTE AUTO 0.07 K/mm3 (0.00-0.68); EOSINOPHILS PERCENT AUTO 0 % (0-6); Hematocrit 39.9 % (33.0-51.0); Hemoglobin 12.3 g/dL (11.5-16.0); IMMATURE GRAN ABSOLUTE AUTO 0.19 K/mm3 (0.00-0.10); IMMATURE GRAN PERCENT AUTO 1 % (0-1); LYMPHOCYTES ABSOLUTE AUTO 1.15 K/mm3 (0.84-5.20); LYMPHOCYTES PERCENT AUTO 7 % (21-46); MONOCYTES ABSOLUTE AUTO 1.59 K/mm3 (0.16-1.47); MONOCYTES PERCENT AUTO 9 % (4-13); Mean Corpuscular HGB Conc 30.8 g/dL (31.5-36.5); Mean Corpuscular Volume 91 fL (80-100); NEUTROPHILS ABSOLUTE AUTO 13.91 K/mm3 (1.96-9.15); NEUTROPHILS PERCENT AUTO 82 % (41-73); NRBC ABSOLUTE 0.00 K/mm3 (0.00-0.02); NRBC Auto 0.0 /100 WBC (0.0-0.2); Platelet Count 204 K/mm3 (150-400); RDW Coefficient Variation 13.5 % (11.7-14.2); RDW Standard Deviation 45.4 fL (35.1-46.3)
--- NOTE | 2024-11-10 06:12 | NUR ---
SHIFT SUMMARY PT ADMITTED FOR ACUTE HYPOXIC RESPIRATORY FAILURE. PT IS ALERT AND ORIENTED TIMES 3. PT IS COOPERATIVE WITH CARE. PT IS ON TELE WITH AFIB 90 S. PT HAS POWER GLIDE IN LEFT UPPER ARM. PT APPEARS TO HAVE SLEPT THROUGH THE NIGHT WITHOUT ISSUE. BED IN LOW POSITION, CALL LIGHT WITHIN REACH, RAILS TIMES 2.
[2024-11-10 06:30] LABS: Alanine Aminotransfer (ALT/SGP 33.0 U/L (12-78); Albumin, Blood 2.9 g/dL (3.4-5.0); Albumin/Globulin Ratio 0.7 (0.8-1.8); Anion Gap 9.0 mmol/L (3-11); Aspartate Aminotrans (AST/SGOT 25.0 U/L (12-37); Bilirubin, Total 0.8 mg/dL (0.1-1.0); Blood Urea Nitrogen 43.0 mg/dL (8-24); CO2, Blood 24.0 mmol/L (21-32); Calcium, Blood 9.3 mg/dL (8.5-10.1); Chloride, Blood 108.0 mmol/L (98-108); Creatinine, Blood 1.6 mg/dL (0.40-1.00); Globulin, Blood 4.4 g/dL (2.2-4.0); Glucose, Blood 173.0 mg/dL (70-99); Potassium, Blood 4.0 mmol/L (3.5-5.5); Sodium, Blood 137.0 mmol/L (136-145); Total Protein, Blood 7.3 g/dL (6.4-8.2)
[2024-11-10] MEDS ORDERED: Cholecalciferol 1000 Unit Tablet (=25MCG) PO SCH (09:00)
[2024-11-10] MEDS ORDERED: COENZYME Q10 PO SCH (09:00)
--- NOTE | 2024-11-10 13:31 | NUR ---
PT ARRIVED IN PCU FROM MEDICAL FLOOR. PT WAS O 9L OF HIFLO VIA NASAL CANNULA. PT WAS ALERT AD TALKING UPONG ARRIVAL, SATS 91% ON 9L OF NASAL CANNULA. VBG WAS DONE AWAITING FOR RESULT. PT PLACED ON BIPAP SETTINGS 12/6 50% FIO2. VITALS HRR AFIB TO THE 90-120'S, SBP 130'S, AFERBILE. WILL CONTINUE TO MONITOR
[2024-11-10 13:33] LABS: pH Blood Venous 7.32 (7.34-7.37)
--- NOTE | 2024-11-10 14:12 | NUR ---
TRANSFER NOTE PT TRANSFERRED TO PCU 3, REPORT GIVEN TO JAILYN MARINELLI. OXYGEN PROVIDED DURING TRANSPORT. PT'S MEDICATIONS AND PERSONAL BELONGINGS TAKEN TO THE ROOM. HER GUARDIAN, ODELL, UPDATED ON THE TRANSFER.
--- NOTE | 2024-11-10 17:23 | NUR ---
PT SUMMARY; PT HAS BEEN ON AND OFF BIPAP MASK AND NASAL CANNULA PT TOLERATED MASK FOR A TOTAL OF 2 HRS 1 HR EACH TIME THEN SWITCH BACK TO NASAL CANNULA. PT C/O WAKING UP FEELING ANXIOUS AND COULDNT BREATHE, PT WAS OFFERED A RECLINER CHAIR AND WAS AGREEABLE TO STAY UP IN CHAIR UNTIL DINNER. 1PA FOR TRANSFERS. VITALS HRR AFIB 90-110'S, SBP 130-140'S, SATS ABOVE 90% ON 9L OF 02 BIPAP SETTINGS 12/6 40% FIO2, AFEBRILE. PT STARTED ON DIURETICS 20MG IV GIVEN NOW. PT ABLE TO USE BEDSIDE COMMODE FOR VOIDING. PT CURRENTLY EATING DINNER. NO OTHER ISSUES ENCOUNTERED WILL REPORT TO ONCOMING SHIFT
[2024-11-11 03:36] VITALS: BP 121/80
[2024-11-11 04:02] LABS: BASOPHILS ABSOLUTE AUTO 0.06 K/mm3 (0.00-0.23); BASOPHILS PERCENT AUTO 0 % (0-2); EOSINOPHILS ABSOLUTE AUTO 0.26 K/mm3 (0.00-0.68); EOSINOPHILS PERCENT AUTO 2 % (0-6); Hematocrit 33.2 % (33.0-51.0); Hemoglobin 10.4 g/dL (11.5-16.0); IMMATURE GRAN ABSOLUTE AUTO 0.16 K/mm3 (0.00-0.10); IMMATURE GRAN PERCENT AUTO 1 % (0-1); LYMPHOCYTES ABSOLUTE AUTO 1.49 K/mm3 (0.84-5.20); LYMPHOCYTES PERCENT AUTO 10 % (21-46); MONOCYTES ABSOLUTE AUTO 1.46 K/mm3 (0.16-1.47); MONOCYTES PERCENT AUTO 9 % (4-13); Mean Corpuscular HGB Conc 31.3 g/dL (31.5-36.5); Mean Corpuscular Volume 91 fL (80-100); NEUTROPHILS ABSOLUTE AUTO 12.13 K/mm3 (1.96-9.15); NEUTROPHILS PERCENT AUTO 78 % (41-73); NRBC ABSOLUTE 0.00 K/mm3 (0.00-0.02); NRBC Auto 0.0 /100 WBC (0.0-0.2); Platelet Count 242 K/mm3 (150-400); RDW Coefficient Variation 13.5 % (11.7-14.2); RDW Standard Deviation 44.0 fL (35.1-46.3)
[2024-11-11 04:42] LABS: Anion Gap 8.0 mmol/L (3-11); Blood Urea Nitrogen 42.0 mg/dL (8-24); CO2, Blood 25.0 mmol/L (21-32); Calcium, Blood 8.7 mg/dL (8.5-10.1); Chloride, Blood 108.0 mmol/L (98-108); Creatinine, Blood 1.56 mg/dL (0.40-1.00); Glucose, Blood 243.0 mg/dL (70-99); Potassium, Blood 3.8 mmol/L (3.5-5.5); Sodium, Blood 137.0 mmol/L (136-145)
--- NOTE | 2024-11-11 05:25 | NUR ---
SHIFT SUMARRY PT ALERT AND ORIENTED X 4 WITH SOME ANXIOUSNESS. PT HR 90S-100S AFIB. PT DENIES CHEST PAIN/PRESSURE. PT ON 7L NC AND BIPAP AT NOC. TOLERATING WELL. SOME DYSPNEA ON EXERTION THAT IMPROVES WITH REST. PT WITH ADEQUATE URINE OUTPUT. PT DENIES PAIN. VSS.
[2024-11-11 07:33] VITALS: BP 114/90
[2024-11-11] MEDS ORDERED: Piperacillin/Tazobactam Sod 4.5 GM in NS 100 ML IV SCH (08:00)
[2024-11-11 11:49] VITALS: BP 129/76
[2024-11-11 16:25] VITALS: BP 93/76
--- NOTE | 2024-11-11 17:31 | NUR ---
PT SUMMARY; NO ACUTE CHANGE FOR THE SHIFT. VITALS HRR AFIB/FLUTTER 90'S, SBP SOFT BY THE END OF THE SHIFT 90'S WITH MAP >80'S, SATS ABOVE 90% ON 4L OF O2, AFEBRILE. BIPAP ON STANDBY. PT HAS BEEN WALKING TO THE BATHROOM VIA WALKER 1PA. PT HAS BEEN CALLING APPROPRIATELY. POSSIBLE DC BACK TO [facility] TOMORROW IF NO ISSUES TO NIGHT. PT NOW EATING EATING, UP IN THE CHAIR WILL REPORT TO ONCOMING SHIFT
[2024-11-11 20:15] VITALS: BP 151/105
[2024-11-11 23:49] VITALS: BP 131/75
[2024-11-12 02:57] VITALS: BP 127/85
[2024-11-12 04:11] LABS: BASOPHILS ABSOLUTE AUTO 0.07 K/mm3 (0.00-0.23); BASOPHILS PERCENT AUTO 0 % (0-2); EOSINOPHILS ABSOLUTE AUTO 0.24 K/mm3 (0.00-0.68); EOSINOPHILS PERCENT AUTO 2 % (0-6); Hematocrit 33.7 % (33.0-51.0); Hemoglobin 10.6 g/dL (11.5-16.0); IMMATURE GRAN ABSOLUTE AUTO 0.32 K/mm3 (0.00-0.10); IMMATURE GRAN PERCENT AUTO 2 % (0-1); LYMPHOCYTES ABSOLUTE AUTO 1.24 K/mm3 (0.84-5.20); LYMPHOCYTES PERCENT AUTO 8 % (21-46); MONOCYTES ABSOLUTE AUTO 1.41 K/mm3 (0.16-1.47); MONOCYTES PERCENT AUTO 9 % (4-13); Mean Corpuscular HGB Conc 31.5 g/dL (31.5-36.5); Mean Corpuscular Volume 90 fL (80-100); NEUTROPHILS ABSOLUTE AUTO 12.68 K/mm3 (1.96-9.15); NEUTROPHILS PERCENT AUTO 80 % (41-73); NRBC ABSOLUTE 0.00 K/mm3 (0.00-0.02); NRBC Auto 0.0 /100 WBC (0.0-0.2); Platelet Count 257 K/mm3 (150-400); RDW Coefficient Variation 13.4 % (11.7-14.2); RDW Standard Deviation 43.9 fL (35.1-46.3)
[2024-11-12 04:30] LABS: Anion Gap 7.0 mmol/L (3-11); Blood Urea Nitrogen 38.0 mg/dL (8-24); CO2, Blood 27.0 mmol/L (21-32); Calcium, Blood 8.8 mg/dL (8.5-10.1); Chloride, Blood 109.0 mmol/L (98-108); Creatinine, Blood 1.63 mg/dL (0.40-1.00); Glucose, Blood 192.0 mg/dL (70-99); Potassium, Blood 3.5 mmol/L (3.5-5.5); Sodium, Blood 139.0 mmol/L (136-145)
--- NOTE | 2024-11-12 04:57 | NUR ---
SHIFT SUMMARY PT ALERT AND ORIENTEDX 4. PT ON 5L NC. PT DOES HAVE SOB AND DYSPNEA WITH EXERTION. BIPAP ON STANDBY. DID NOT HAVE TO USE THIS SHIFT. PT AFIB/FLUTTER WITH HR 90S-100S. PT DENIES CP/PRESSURE. PT UP TO CHAIR THIS SHIFT. ADEQUATE URINE OUTPUT. +BM. DENIES PAIN. PT WITH SOME ANXIETY, OFFERED REASSURANCE.
[2024-11-12 07:56] VITALS: BP 125/78
[2024-11-12] MEDS ORDERED: Ondansetron HCl 2 MG / ML 2ML Vial IV PRN (08:35)
[2024-11-12] MEDS ORDERED: Ipratropium/Albuterol SulF 2.5-0.5MG/3 ML Amp INH SCH (08:40)
[2024-11-12 11:14] VITALS: BP 126/66
[2024-11-12 16:11] VITALS: BP 131/67
--- NOTE | 2024-11-12 18:11 | NUR ---
PT SUMMARY; PT HAS BEEN DESATTING TO LOW 80'S WITH EXERTION FOR THE SHIFT USES 6-8L OF 02 TO KEEP SATS ABOVE 90% 6L AT REST AND 8L WITH EXERTION, GETS VERY SOB WITH EXERTION RECOVERS WITH TAKING DEEP BREATHS. THIS MORNING PT HAS AUDIBLE WHEEZES, DUONEB BREATHING TX Q4 HRS WAS ORDERED AND WAS EFFECTIVE. PT HAS BEEN AMBULATING TO THE BATHROOM SBA UP IN CHALO CHAIR THEN BACK TO BED, PT DENIES ANY PAIN/DISCOMFORT JUST FEELING TIRED. NOTICED SOME EXCORIATION IN THE COCCYX BARRIER CREAM APPLIED. PT CONTINUES ON IV ABX. WILL REPORT TO ONCOMING SHIFT
[2024-11-12 20:18] VITALS: BP 101/77
[2024-11-12 23:55] VITALS: BP 128/62
[2024-11-13 03:06] VITALS: BP 131/105
--- NOTE | 2024-11-13 04:21 | NUR ---
SHIFT SUMMARY PT HAVING SOB WITH MINIMAL ACTIVITY. RECIEVING SCHEDULED NEBULIZER TREATMENT. PT ALSO WITH ANXIETY MAKING SOB WORSE. ENCOURAGED PATIENT TO USE CPAP AT NIGHT, BUT WITH ANXIETY ONLY ABLE TO TOLERATE AN HOUR. PT ON 5-10L NC DEPENDING ON ACTIVITY LEVEL. PT UP TO BSC AND CHAIR. ADEQUATE URINE OUTPUT. PT 1 PERSON ASSIST TO BSC. PT GIVEN REASURANCE AND PROPER BREATHING TECHNIQUES TO HELP OFFSET SOB AND ANXIETY.
[2024-11-13 04:52] LABS: BASOPHILS ABSOLUTE AUTO 0.09 K/mm3 (0.00-0.23); BASOPHILS PERCENT AUTO 1 % (0-2); EOSINOPHILS ABSOLUTE AUTO 0.20 K/mm3 (0.00-0.68); EOSINOPHILS PERCENT AUTO 1 % (0-6); Hematocrit 34.2 % (33.0-51.0); Hemoglobin 10.5 g/dL (11.5-16.0); IMMATURE GRAN ABSOLUTE AUTO 0.62 K/mm3 (0.00-0.10); IMMATURE GRAN PERCENT AUTO 3 % (0-1); LYMPHOCYTES ABSOLUTE AUTO 1.06 K/mm3 (0.84-5.20); LYMPHOCYTES PERCENT AUTO 6 % (21-46); MONOCYTES ABSOLUTE AUTO 1.72 K/mm3 (0.16-1.47); MONOCYTES PERCENT AUTO 9 % (4-13); Mean Corpuscular HGB Conc 30.7 g/dL (31.5-36.5); Mean Corpuscular Volume 91 fL (80-100); NEUTROPHILS ABSOLUTE AUTO 14.86 K/mm3 (1.96-9.15); NEUTROPHILS PERCENT AUTO 80 % (41-73); NRBC ABSOLUTE 0.00 K/mm3 (0.00-0.02); NRBC Auto 0.0 /100 WBC (0.0-0.2); Platelet Count 311 K/mm3 (150-400); RDW Coefficient Variation 13.5 % (11.7-14.2); RDW Standard Deviation 45.4 fL (35.1-46.3)
[2024-11-13 05:09] LABS: Anion Gap 8.0 mmol/L (3-11); Blood Urea Nitrogen 41.0 mg/dL (8-24); CO2, Blood 25.0 mmol/L (21-32); Calcium, Blood 8.6 mg/dL (8.5-10.1); Chloride, Blood 108.0 mmol/L (98-108); Creatinine, Blood 1.73 mg/dL (0.40-1.00); Glucose, Blood 165.0 mg/dL (70-99); Potassium, Blood 3.6 mmol/L (3.5-5.5); Sodium, Blood 137.0 mmol/L (136-145)
[2024-11-13 07:35] VITALS: BP 111/76
[2024-11-13 11:36] VITALS: BP 122/65
[2024-11-13 15:25] VITALS: BP 111/56
--- NOTE | 2024-11-13 17:46 | NUR ---
shift summary. shift has gone well overall. pt aox3-4, cooperative, able to make needs known. this morning, pt was unable to tolerate bipap d/t anxiety. provided po ativan per emar which helped to alleviate anxiety and allowed pt to wear bipap for rest of the morning and most of the afternoon as well. several instances of education provided on indication for and importance of bipap. pt understanding but reluctant d/t anxiety. on bipap, pt has been maintaining adequate saturation with anywhere between 8-11 L of o2 bleed in. off of bipap, o2 demands have fluctuated between 8-15 L o2 via high flow nc. denied pain throughout shift. pt has only voided once today with only 350 mls of urine output recently. will perform bladder scan to assess need for straight cath but first allowing pt to relax to ensure proper oxygenation. otherwise shift has gone well. vitals stable. continues to run afib on tele with rate in the 80s-110s range. bed locked in lowest position. call light left within reach. continuing to monitor.
--- NOTE | 2024-11-13 19:29 | NUR ---
SPOKE WITH DR. GARCIA. PT EXCEEDINGLY ANXIOUS AT THIS TIME REQUESTING TO TAKE OF BIPAP AND LEAVE "JUST FOR SOME FREEDOM" BECAUSE SHE "FEELS LIKE A TOOL". EDUCATED ON IMPORTANCE OF AND INDICATION FOR BIPAP. INQUIRED ABOUT GIVING PT ANXIOLYTIC TO HELP PATIENT TO RELAX AND TOLERATE BIPAP. DR. GARCIA ORDERED 0.5 MG PO ATIVAN NOW AND THE EXISTING Q6P ORDER TO BE CHANGED TO Q4P. ORDERS INPUT. PT AGREEABLE WITH TAKING MEDICATION TO ASSIST WITH ANXIETY AND ALLOW HER TO FEEL MORE COMFORTABLE WITH BIPAP ON. AWAITING VERIFICATION. MATERIALS INTERN RN NOTIFIED OF SITUATION, PASSING CARE TO [facility].
[2024-11-13 19:53] VITALS: BP 131/83
[2024-11-13 23:17] VITALS: BP 123/93
[2024-11-14 04:10] VITALS: BP 110/84
--- NOTE | 2024-11-14 06:35 | NUR ---
SHIFT SUMMARY PT ALERT, OREITNED TO NAME/, YEAR, SITUATION. SHE IS CONFUSED AT TIMES. ANXIOUS WITH BIPAP. SHE IS ABLE TO MAKE HER NEEDS KNOWN. HR IN THE 90'S-100'S, AFIB, SHE DENIES CP/PRESSURE, SBP STABLE. PT ON BIPAP MOST OF NIGHT. TOLERATES BREIF BREAKS FROM BIPAP FOR SIPS OF WATER/MEDICATIONS. REQUIRING 15L VIA NC WHILE OFF BIPAP. PT DESATS WITH EXERTION BUT RECOVERS WITH REPOSITION AND DEEP BREATHING. PT DID HAVE AN EPISODE THIS AM OF INCREASED WOB, RR IN THE HIGH 20'S-30'S, VERY ANXIOUS AND PULLING OFF MASK. PT STATED "I THINK IM GOING TO " SAT WITH PT AND REASSURED HER. MEDICATED FOR ANXIETY AND PLACED BACK ON BIPAP. PT REPORTS SHE FEELS MUCH BETTER NOW. WOB DECREASED AND PT MORE COMFORTABLE. SHE HAS PUREWICK IN PLACE, YELLOW URINE. BLADDER SCAN COMPLETED THIS AM TO CHECK FOR RETENTION PT DID NOT HAVE MUCH OUTPUT, BLADDER SCAN ONLY SHOWED 330MLS. PT HAD SMALL BM THIS AM. PT RESTING IN BED WITH BIPAP ON AT THIS TIME. WILL MONITOR PT AND REPORT TO ONCOMING RN.
[2024-11-14 07:23] LABS: BASOPHILS ABSOLUTE AUTO 0.09 K/mm3 (0.00-0.23); BASOPHILS PERCENT AUTO 1 % (0-2); EOSINOPHILS ABSOLUTE AUTO 0.05 K/mm3 (0.00-0.68); EOSINOPHILS PERCENT AUTO 0 % (0-6); Hematocrit 33.4 % (33.0-51.0); Hemoglobin 10.4 g/dL (11.5-16.0); IMMATURE GRAN ABSOLUTE AUTO 0.71 K/mm3 (0.00-0.10); IMMATURE GRAN PERCENT AUTO 4 % (0-1); LYMPHOCYTES ABSOLUTE AUTO 0.90 K/mm3 (0.84-5.20); LYMPHOCYTES PERCENT AUTO 5 % (21-46); MONOCYTES ABSOLUTE AUTO 1.66 K/mm3 (0.16-1.47); MONOCYTES PERCENT AUTO 8 % (4-13); Mean Corpuscular HGB Conc 31.1 g/dL (31.5-36.5); Mean Corpuscular Volume 90 fL (80-100); NEUTROPHILS ABSOLUTE AUTO 16.56 K/mm3 (1.96-9.15); NEUTROPHILS PERCENT AUTO 83 % (41-73); NRBC ABSOLUTE 0.02 K/mm3 (0.00-0.02); NRBC Auto 0.1 /100 WBC (0.0-0.2); Platelet Count 320 K/mm3 (150-400); RDW Coefficient Variation 13.4 % (11.7-14.2); RDW Standard Deviation 44.7 fL (35.1-46.3)
[2024-11-14 07:43] LABS: Anion Gap 8.0 mmol/L (3-11); Blood Urea Nitrogen 45.0 mg/dL (8-24); CO2, Blood 27.0 mmol/L (21-32); Calcium, Blood 9.0 mg/dL (8.5-10.1); Chloride, Blood 107.0 mmol/L (98-108); Creatinine, Blood 1.94 mg/dL (0.40-1.00); Glucose, Blood 152.0 mg/dL (70-99); Potassium, Blood 3.6 mmol/L (3.5-5.5); Sodium, Blood 138.0 mmol/L (136-145)
[2024-11-14 08:19] LABS: pH Blood Venous 7.24 (7.34-7.37)
[2024-11-14] MEDS ORDERED: Furosemide 10 MG / ML 2ML Vial IV SCH (09:00)
[2024-11-14 09:17] VITALS: BP 114/72
[2024-11-14 10:09] LABS: pH Blood Venous 7.21 (7.34-7.37)
[2024-11-14] MEDS ORDERED: Morphine Sulfate 4 MG/1 ML Injection IV PRN (10:55)
[2024-11-14] MEDS ORDERED: Morphine Sulfate 10 MG/ML 1MLSYR IV PRN (11:40)
[2024-11-14] MEDS ORDERED: Morphine Sulfate 20 MG/1ML 1 ML Oral Syringe SL PRN (11:45)
[2024-11-14] MEDS ORDERED: Piperacillin/Tazobactam Sod 4.5 GM in NS 100 ML IV SCH ×2 (12:01→16:00)
--- NOTE | 2024-11-14 14:00 | NUR ---
LATE NOTE. PT MADE COMFORT CARE THIS MORNING @ ABOUT ~[address] CARDENAS, DR. GARCIA, AND PALLIATIVE CARE NURSE GOMEZ. ORDERS INPUT, DCd ALL OTHER SCHEDULED MEDICATIONS. HAVE HAD SOME DIFFICULTY CONTROLLING PATIENT ANXIETY SINCE REMOVING BIPAP AND HAVING AIRVO IN PLACE. MEDICATING PER EMAR, FINDING RIGHT SCHEDULE FOR PRN MEDICATIONS. PT REMAINS PLEASANT AND COOPERATIVE WITH CARE ALTHOUGH HAS BEEN INCREASINGLY CONFUSED THIS MORNING. MOST RECENTLY BEING UNSURE OF WHERE SHE IS AND BEING FIXATED ON TALKING TO HER SISTER. REMAINS REDIRECTABLE AND COOPERATIVE. ABLE TO MAKE NEEDS KNOWN. BED LOCKED IN LOWEST POSITION. CALL LIGHT LEFT WITHIN REACH. CONTINUING TO MONITORL
--- NOTE | 2024-11-14 16:37 | NUR ---
SHIFT SUMMARY. PT MADE COMFORT CARE THIS MORNING, SEE PREVIOUS NOTE FOR DETAILS. PT CONTINUES TO BE ON THE AIRVO AT THIS TIME FOR COMFORT. SEE EMAR FOR MEDICATION ADMINISTRATION FREQUENCY AND DOSAGES. AT THIS TIME, PT MUCH MORE COMFORTABLE AND IS RESTING. SPOKE WITH PT GUARDIAN VALENTINE THIS MORNING, VALENTINE PLANS TO BE ABLE TO VISIT AROUND 1900 PER OUR LAST CONVERSATION. SHIFT OTHERWISE HAS BEEN UNREMARKABLE. BED LOCKED IN LOWEST POSITION. CALL LIGHT IN REACH. BED ALARM ACTIVE FOR SAFETY. CONTINUING TO MONITOR.
--- NOTE | 2024-11-14 21:23 | NUR ---
PT TOEmilio 1716 WITNESSED AND CONFIRMED TRITAN CASE AND CURT SOUZA PT DISCHARGED TO [facility].
--- NOTE | 2024-11-14 21:34 | NUR ---
PT BELONGINGS SENT WITH AIDAN SAUCEDO.
== END 2024-11-14 20:34 | DRG 871 ==
LOC: ER 11:18 → MEDS 12:53 → PCU 11-10 13:21
PROVIDERS: Internal Medicine; Student in an Organized Health Care Education/Training Program; ADMIT Family Medicine
PROC: 3E03329 Introduction of Other Anti-infective into Peripheral Vein, Percutaneous Approach (ICD-10-PCS; 2024-11-08)
PROC: 5A09457 Assistance with Respiratory Ventilation, 24-96 Consecutive Hours, Continuous Positive Airway Pressure (ICD-10-PCS; principal; 2024-11-11)
DX: A41.9 Sepsis, unspecified organism (principal); I50.33 Acute on chronic diastolic (congestive) heart failure; J18.9 Pneumonia, unspecified organism; J96.01 Acute respiratory failure with hypoxia; J44.0 Chronic obstructive pulmonary disease with (acute) lower respiratory infection; J44.1 Chronic obstructive pulmonary disease with (acute) exacerbation; N17.9 Acute kidney failure, unspecified; E87.20 Acidosis, unspecified; I13.0 Hypertensive heart and chronic kidney disease with heart failure and stage 1 through stage 4 chronic kidney disease, or unspecified chronic kidney disease; Z66 Do not resuscitate; Z51.5 Encounter for palliative care; R65.20 Severe sepsis without septic shock; E11.22 Type 2 diabetes mellitus with diabetic chronic kidney disease; N18.30 Chronic kidney disease, stage 3 unspecified; G47.33 Obstructive sleep apnea (adult) (pediatric); I48.0 Paroxysmal atrial fibrillation; I25.10 Atherosclerotic heart disease of native coronary artery without angina pectoris; K21.9 Gastro-esophageal reflux disease without esophagitis; E11.65 Type 2 diabetes mellitus with hyperglycemia; I34.2 Nonrheumatic mitral (valve) stenosis; E78.00 Pure hypercholesterolemia, unspecified; Z96.653 Presence of artificial knee joint, bilateral; Z91.041 Radiographic dye allergy status; Z88.8 Allergy status to other drugs, medicaments and biological substances; Z88.5 Allergy status to narcotic agent; Z79.01 Long term (current) use of anticoagulants; Z79.4 Long term (current) use of insulin; Z79.84 Long term (current) use of oral hypoglycemic drugs; Z79.899 Other long term (current) drug therapy; Z79.891 Long term (current) use of opiate analgesic; Z79.51 Long term (current) use of inhaled steroids; Z90.49 Acquired absence of other specified parts of digestive tract; Z90.89 Acquired absence of other organs; Z90.710 Acquired absence of both cervix and uterus; Z98.890 Other specified postprocedural states; Z85.42 Personal history of malignant neoplasm of other parts of uterus; Z95.2 Presence of prosthetic heart valve; Z90.79 Acquired absence of other genital organ(s); Z90.722 Acquired absence of ovaries, bilateral
CPT/HCPCS: 0241U; 36415; 71045; 71046; 80048; 80053; 82803; 82947; 83605; 83735; 83880; 84145; 84484; 85025; 87040; 87081; 93005; 93010; 94640; 94660; 94664; 94760; 94762; 99285-25; A9270; J0456; J0696; J1815; J1938; J2270; J2405; J2543; J2919; J7050; J7060; J7120